=== PATIENT | male | born 1985 | race African-American/Black ===

== ENCOUNTER 2016-09-28 18:50 | Inpatient (IN) | payer SELFPAY ==
[~2016-09-28] VITALS: Ht 172.7 cm; Wt 100.7 kg
--- NOTE | 2016-09-28 21:12 | PHYS DOC ---
Past Medical History Past Medical History: Hypertension Additional Past Medical Histor: lumbar bulging disc Past Surgical History: No Surgical History Alcohol Use: Rarely Drug Use: Marijuana Adult General Chief Complaint Chief Complaint: OTHER COMPLAINTS HPI HPI Patient is a 31 year old male who presents with right-sided paresthesias. Patient reports since Tuesday he has had tingling and numbness in patches from his right face down through his neck, right arm, right chest, right abdomen/ flank, right leg. No weakness, no headache, no other neuro symptoms. He went to [facility] on Tuesday after his symptoms did not resolve in a short times pain. He reports he underwent evaluation for stroke including CT head, ultrasound of carotids, echocardiogram; he did not undergo MRI. He was discharged home on Tuesday. He presents in today for second opinion as his numbness has continued. No similar episodes before this. No other acute complaints. Review of Systems Review of Systems Constitutional: Denies fever or chills Eyes: Denies change in visual acuity or eye pain HENT: Denies nasal congestion or sore throat Respiratory: Denies cough or shortness of breath Cardiovascular: Denies chest pain GI: Denies abdominal pain, nausea, vomiting, bloody stools or diarrhea : Denies dysuria or hematuria Musculoskeletal: Denies back pain or joint pain Integument: Denies rash or skin lesions Neurologic: R side numbness. Denies headache, focal weakness Current Medications Current Medications Current Medications Medications (Trade) Dose Ordered Sig/Walker Start Time Stop Time Status Last Admin Dose Admin Lorazepam (Ativan) 1 mg 1X ONCE 09/28/16 22:30 09/28/16 22:31 DC 09/28/16 22:36 1 MG Nicotine (Nicoderm Cq 21mg) 1 patch PRN DAILY PRN 09/28/16 22:45 09/28/16 23:20 1 PATCH Allergies Allergies Allergies Coded Allergies Type Severity Reaction Last Updated Verified No Known Drug Allergies 09/28/16 No Physical Exam Physical Exam Constitutional: Well developed, well nourished, no acute distress, non-toxic appearance HENT: Normocephalic, atraumatic, bilateral external ears normal Eyes: PERRL, EOMI, conjunctiva normal, no discharge Neck: Normal range of motion, no stridor Cardiovascular: Heart rate normal, regular rhythm, no murmur Lungs & Thorax: Bilateral breath sounds clear to auscultation Abdomen: Bowel sounds normal, soft, non-distended, no TTP Skin: Warm, dry, no erythema, no rash Extremities: No obvious deformity, no edema Neurologic: Alert and oriented X 3, GCS 15, CN II-XII grossly intact, strength intact and symmetrical throughout, sensation to light touch intact throughout although patient reports areas on R side of body feels slightly different than on L, no dystaxia noted Current Patient Data Vital Signs Vital Signs Date Time Temp Pulse Resp B/P Pulse Ox O2 Delivery O2 Flow Rate FiO2 09/28/16 19:37 102 22 155/93 96 Room Air 09/28/16 19:19 98.3 98.3 Lab Values Laboratory Tests Test 09/28/16 22:15 White Blood Count 8.1x10^3/uL (4.0-11.0) Red Blood Count 5.21x10^6/uL (4.30-5.70) Hemoglobin 16.0g/dL (13.0-17.5) Hematocrit 46.0% (39.0-53.0) Mean Corpuscular Volume 88fL (79-100) Mean Corpuscular Hemoglobin 31pg (25-35) Mean Corpuscular Hemoglobin Concent 35g/dL (31-37) Red Cell Distribution Width 13.2% (11.5-14.5) Platelet Count 325x10^3/uL (140-400) Neutrophils (%) (Auto) 35% (31-73) Lymphocytes (%) (Auto) 52% (24-48) H Monocytes (%) (Auto) 9% (0-9) Eosinophils (%) (Auto) 5% (0-3) H Basophils (%) (Auto) 0% (0-3) Neutrophils # (Auto) 2.8x10^3uL (1.8-7.7) Lymphocytes # (Auto) 4.2x10^3/uL (1.0-4.8) Monocytes # (Auto) 0.7x10^3/uL (0.0-1.1) Eosinophils # (Auto) 0.4x10^3/uL (0.0-0.7) Basophils # (Auto) 0.0x10^3/uL (0.0-0.2) Prothrombin Time 12.1SEC (11.7-14.0) Prothrombin Time INR 1.0 (0.8-1.1) PTT 32SEC (24-38) Sodium Level 137mmol/L (136-145) Potassium Level 3.6mmol/L (3.5-5.1) Chloride Level 103mmol/L (98-107) Carbon Dioxide Level 27mmol/L (21-32) Anion Gap 7 (6-14) Blood Urea Nitrogen 10mg/dL (8-26) Creatinine 0.9mg/dL (0.7-1.3) Estimated GFR (Cockcroft-Gault) 119.1 BUN/Creatinine Ratio 11 (6-20) Glucose Level 97mg/dL (70-99) Calcium Level 9.0mg/dL (8.5-10.1) Total Bilirubin 0.2mg/dL (0.2-1.0) Aspartate Amino Transferase (AST) 16U/L (15-37) Alanine Aminotransferase (ALT) 27U/L (16-63) Alkaline Phosphatase 56U/L (46-116) Total Protein 8.2g/dL (6.4-8.2) Albumin 3.5g/dL (3.4-5.0) Albumin/Globulin Ratio 0.7 (1.0-1.7) L Laboratory Tests 09/28/16 22:15 Laboratory Tests 09/28/16 22:15 EKG EKG EKG (my read): sinus rhythm, rate 96, normal axis, intervals wnl, no acute ischemic changes Radiology/Procedures Radiology/Procedures CXR (my read): No acute abnormality Course & Med Decision Making Course & Med Decision Making Pertinent Labs and Imaging studies reviewed. (See chart for details) Patient is 31-year-old male who presents with right-sided numbness. Low suspicion for stroke given lack of other symptoms and nonfocal neuro exam, combined with age. I discussed the case with Dr. burns, who says patient should be admitted to hospital to undergo MRI. She also requests urine drug screen. I discussed this with patient, who has reluctantly agreed to be admitted and undergo the MRI. Labs, EKG, chest x-ray ordered. Discussed with Dr. Baker, will admit under her care for further evaluation and treatment. Dragon Disclaimer Dragon Disclaimer This electronic medical record was generated, in whole or in part, using a voice recognition dictation system. Departure Departure Impression: Primary Impression: Paresthesias Disposition: 09 ADMITTED INPATIENT Admitting Physician: Destiny Baker Condition: STABLE Referrals: NO PCP (PCP) KAREN CHAU MD Sep 28, 2016 21:13
[2016-09-28 22:30] LABS: BASO % 0 % (0-3); EOS % 5 % (0-3); LYMPH # 4.2 x10^3/uL (1.0-4.8); LYMPH % 52 % (24-48); MEAN CORPUSCULAR HEMOGLOBIN 31 pg (25-35); MEAN CORPUSCULAR HGB CONC 35 g/dL (31-37); MEAN CORPUSCULAR VOLUME 88 fL (79-100); MONO % 9 % (0-9); NEUT % 35 % (31-73); PLATELET COUNT 325 x10^3/uL (140-400); RED BLOOD COUNT 5.21 x10^6/uL (4.30-5.70); RED CELL DISTRIBUTION WIDTH 13.2 % (11.5-14.5); WHITE BLOOD COUNT 8.1 x10^3/uL (4.0-11.0)
[2016-09-28] MEDS ORDERED: LORAZEPAM 1 MG TABLET. PO ONE (22:30)
[2016-09-28 22:39] LABS: PROTHROMBIN TIME PATIENT 12.1 SEC (11.7-14.0)
[2016-09-28 22:40] LABS: CREATININE 0.9 mg/dL (0.7-1.3); GFR 119.1; POTASSIUM 3.6 mmol/L (3.5-5.1)
[2016-09-28] MEDS ORDERED: NICOTINE 21MG PATCH. TD PRN (22:45)
[2016-09-28 22:46] LABS: ALBUMIN 3.5 g/dL (3.4-5.0); ALBUMIN/GLOBULIN RATIO 0.7 (1.0-1.7); TOTAL BILIRUBIN 0.2 mg/dL (0.2-1.0); TOTAL PROTEIN 8.2 g/dL (6.4-8.2)
[2016-09-28] MEDS ORDERED: ACETAMINOPHEN 325 MG TABLET. PO PRN (23:15)
[2016-09-28] MEDS ORDERED: ONDANSETRON PF 4 MG/2 ML VIAL. IV PRN (23:15)
[2016-09-29 01:01] VITALS: BP 139/95
[2016-09-29] MEDS ORDERED: MORPHINE SULFATE 2 MG/ML DISP.SYRIN. IV PRN (02:30)
[2016-09-29 04:44] LABS: BASO # 0.1 x10^3/uL (0.0-0.2); BASO % 2 % (0-3); EOS % 5 % (0-3); HEMATOCRIT 42.4 % (39.0-53.0); HEMOGLOBIN 14.6 g/dL (13.0-17.5); LYMPH % 56 % (24-48); MEAN CORPUSCULAR HEMOGLOBIN 31 pg (25-35); MEAN CORPUSCULAR HGB CONC 34 g/dL (31-37); MEAN CORPUSCULAR VOLUME 89 fL (79-100); MONO % 9 % (0-9); NEUT % 29 % (31-73); PLATELET COUNT 299 x10^3/uL (140-400); RED BLOOD COUNT 4.76 x10^6/uL (4.30-5.70); WHITE BLOOD COUNT 7.1 x10^3/uL (4.0-11.0)
[2016-09-29 05:00] LABS: CALCIUM 8.9 mg/dL (8.5-10.1); CREATININE 0.9 mg/dL (0.7-1.3); GFR 119.1; POTASSIUM 3.6 mmol/L (3.5-5.1)
--- NOTE | 2016-09-29 06:22 | EKG ---
[facility] [address] [place] [address] Test Date: 2016-09-28 Test Time: 22:24:11 Pat Name: GINNY SORTO Department: Room: Gender: M Larry Operator: : 1985 Requested By: KAREN CHAU Order Number: [id number] Reading MD: Measurements Intervals [place] Rate: 96 P: 59 UT: 144 QRS: 24 QRSD: 88 T: 48 QT: 336 QTc: 425 Interpretive Statements SINUS RHYTHM LEFT ATRIAL ABNORMALITY RI6.01 Unconfirmed report No previous ECG available for comparison
[2016-09-29 07:02] LABS: % EOS 6 % (0-5)
[2016-09-29 07:03] LABS: PLT ESTIMATE ADEQUATE (ADEQUATE)
[2016-09-29 07:12] VITALS: BP 144/93
[2016-09-29] MEDS ORDERED: AMLO10TA2 PO (07:32)
--- NOTE | 2016-09-29 07:58 | RAD ---
Portable chest, 09/28/2016: History: Right-sided numbness The heart size and pulmonary vascularity are normal. The lungs are clear. There is no evidence of pleural fluid. IMPRESSION: No acute cardiopulmonary abnormality is detected.
[2016-09-29 10:36] VITALS: BP 151/106
[2016-09-29 11:19] VITALS: BP 151/106
[2016-09-29] MEDS ORDERED: AMLODIPINE BESYLATE 10 MG TABLET PO SCH (11:30)
[2016-09-29] MEDS ORDERED: GADOBUTROL 10 MMOL/10 ML VIAL IV ONE (14:45)
--- NOTE | 2016-09-29 15:10 | RAD ---
PROCEDURE Brain MRI with and without contrast. HISTORY Right facial and upper extremity weakness. TECHNIQUE Multiplanar and multi sequence magnetic resonance imaging of the brain was performed prior to and following the administration of 10 cc Gadavist intravenous contrast. COMPARISON None. FINDINGS There is restricted diffusion within the left thalamus. There is corresponding T2/FLAIR hyperintensity and faint enhancement within this region. This suggests a late subacute rather than an acute infarct. There is no susceptibility effect to suggest hemorrhage. There is no mass effect or midline shift. There is no hydrocephalus. There are several scattered focal areas of T2/FLAIR hyperintensity within the cerebral white matter, a nonspecific finding. The orbits are unremarkable. The paranasal sinuses are unremarkable. The mastoid air cells are clear. There are normal flow voids within the cerebral vessels. IMPRESSION 1. Suspected late subacute infarct within the left thalamus, demonstrating restricted diffusion and faint enhancement. 2. Scattered focal areas of T2/FLAIR hyperintensity within the cerebral white matter. Given the patient age, the differential includes chronic small vessel disease as well as demyelinating disease. Findings were discussed with the Dr. Echevarria at 1500 hours on 02/26/2017. Electronically signed by: Sandy Elizabeth (Sep 29, 2016 15:08:27)
--- NOTE | 2016-09-29 15:43 | DISCH ---
DISCHARGE INSTRUCTIONS Condition on Discharge Condition on Discharge: Stable Activity After Discharge Activity Instructions for Disc: No restrictions Diet after Discharge Diet after Discharge: Cardiac Contacting the DRMaryse after DC Call your doctor for: Concerns you may have Follow-Up Follow up with: New PCP BOBBY! ANITA TERRELL MD Sep 29, 2016 15:43
[2016-09-29] MEDS ORDERED: ASPI325T11 PO (15:44)
[2016-09-29] MEDS ORDERED: LISI-334 PO (15:56)
[2016-09-29] MEDS ORDERED: ASPIRIN 325 MG TABLET PO SCH (17:00)
--- NOTE | 2016-09-29 18:54 | SSS ---
ADMIT DATE: 09/29/2016 CHIEF COMPLAINT: Right-sided paresthesias. HISTORY OF PRESENT ILLNESS: The patient is a 31-year-old gentleman with known history of hypertension who presented to the Emergency Room with worsening right-sided paresthesias. He relates that he actually had symptoms starting late last week and had presented to [facility] with complaints of numbness in his hands that would not resolve. He describes this as a feeling of having his hands falling asleep with numbness and tingling. The patient apparently was worked up in [place] for CVA, except MRI was omitted as it would have meant for him to stay in the hospital for another day. He went home and within a day or so had worsening symptoms with numbness and tingling spreading over his entire arm, his right face and his right torso and leg as well. He denies any weakness, denies any vision problems or other symptoms, never had symptoms like this before. FAMILY HISTORY: Negative. PAST MEDICAL HISTORY: Hypertension. SOCIAL HISTORY: Lives with his and 8 children. 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 Minimal alcohol and occasional pot use. Of note, he had positive drug screen for cocaine as well as oxycodone at [place], states he was smoking pot with a friend potentially laced with cocaine. ALLERGIES: No known drug allergies. MEDICATIONS: Norvasc at home. REVIEW OF SYSTEMS: Numbness and tingling as per HPI. Rest of organ system review was completely negative. PHYSICAL EXAMINATION: VITAL SIGNS: Show a blood pressure of 151/106, respiratory rate at 18. He is afebrile. GENERAL: This is an obese 31-year-old gentleman, alert and oriented, in no acute distress. HEENT: Shows no scleral icterus. Oral mucosa is pink and moist. NECK: Supple. LUNGS: Clear to auscultation bilaterally. HEART: Regular rate and rhythm. ABDOMEN: Has positive bowel sounds. Soft, nontender. EXTREMITIES: Show no edema. NEUROLOGIC: He is alert and oriented x 3. Muscle strength is 5/5 throughout. Sensorium appears intact. LABORATORY DATA: CBC here shows a WBC of 7.1, hemoglobin 14.6, platelets of 299. Chemistries with a BUN and creatinine of 10 and 0.9. Electrolytes within normal, LFTs within normal. TSH at 1.6. Lipid panel back ordered, results pending. IMAGING: MRI of the brain obtained this afternoon shows a suspected late subacute infarct within the left thalamus demonstrating restricted diffusion and faint enhancement. In addition, there are scattered focal areas of T2 flair hyperintensity within the cerebral white matter, differential including chronic small vessel disease or a demyelinating disease. ASSESSMENT AND PLAN: The patient is a 31-year-old gentleman with unusual presentation of sensorial deficits. This unfortunately has been shown to be related to a subacute stroke, which more than likely occurred prior to his presentation at [facility] last week. Unfortunately, MRI there had not been obtained. However, further workup to rule out risk factors have been undertaken. This included an echocardiogram, which did not show a foramen, but did show decreased ejection fraction at 40%-45%. Carotid ultrasound bilaterally was negative. I discussed with him risk factors for stroke. This may very well be related to his cocaine use even if unintentional. I advised him to abstain from illicit drug use. However, he does have multiple other risk factors as well including a significant smoking history as well as hypertension, which is poorly controlled. I strongly advised smoking cessation. His hypertension was addressed by increasing his blood pressure medication. He is taking Norvasc at home. Lisinopril was added to his regimen. He also will take an aspirin 325 mg daily for the next month, can decrease to 81 later on. He was strongly urged to follow up with a primary care physician for monitoring of other risk factors. Lipid profile is pending at this time. He may need a statin as well. DISCHARGE DATE: 09/29/2016. DISCHARGE DISPOSITION: To home. DISCHARGE CONDITION: Stable. DISCHARGE DIAGNOSES: Thalamic infarct. DISCHARGE MEDICATIONS: Please refer to MAR. DISCHARGE INSTRUCTIONS: Follow up with PCP BOBBY. ANITA TERRELL MD DR: JAMEEL/nts JOB#: [id number] / [id number] HARPREET
--- NOTE | 2016-09-29 19:16 | PDOC2 ---
NEUROLOGY CONSULT Date of Admission Date of Admission DATE: 09/29/16 TIME: 19:06 Reason for Consult Reason for Consult: IMPRESSION: Subacute left thalamus infarct. Right side numbness and paresthesia for about 4 days. HTN Smoking RECOMMENDATIONS/PLAN: ASA 325 mg daily. Statin HS. Brain MRI, performed. Lab: see orders. Carotid A US + Doppler and Echo were performed in other hospital a few days ago. HISTORY OF THE PRESENT ILLNESS: 31-y-old male patient with Hx of HTN and smoking developed symptoms of right side numbness and tingling for several days. He went to other hospital and had CVA evaluation including Carotid A US and Echo, but he left there without brain MRI. His symptoms persistent, he then came to the ER of [facility]. His brain MRI revealed above infarct. PAST MEDICAL HISTORY: Please see above. PAST SURGERY HISTOR: No major surgery recently. ALLERGY: Unknown MEDICATIONS: Refer to MAR FAMILY HISTORY: Non contributory. SOCIAL HISTORY: Denies drinking, and illicit drug use. He smokes 1 pack of cigarettes a day for 13 years. REVIEW OF SYSTEMS: Constitutional: No malnutrition, weight loss, cachexia. Head: No traumatic brain or head injury. Skin: No edema, or rash. Ear: No infection, tinnitus. Eyes: No vision loss or color blindness. Nose: No bleeding or purulent discharges. Hearing: No hearing decrease. Neck: No injury. Cardiac: HTN Pulmonary: No pneumonia. GI: No GI ulcer, GI bleeding. Urinary/genital: No dysuria, hematuria, incontinence, urinary retention. Endocrinologic: No cousin face, craniofacial dysmorphism, polydactyly, goiter Skeletomuscular: No muscular atrophy, deformity. Neurological: see HP. Psychiatric: Denies drug use/abuse. Otherwise, not [id number] review of systems. PHYSICAL EXAMINATION: General appearance is in subacute distress. HEENT: Normocephalic and nontraumatic. Eyes, nose, ears, and throat are unremarkable. Neck is supple. No lymphadenopathy. No bruits are heard over the carotid artery. No crepitus. Cardiovascular: S1, S2, regular rate and rhythm. Pulmonary: Clear to auscultation bilaterally. Abdomen: Bowel sounds are positive. Abdomen is soft, nontender, and nondistended. Extremities: No rash, lesions, or edema. No restriction of range of motion NEUROLOGICAL EXAMINATION: Alert Oriented to time, place and person. PERRL. EOMI. CN: no focal findings. Muscle tone: within normal. Muscle strength: 5 DTR: 2 Plantar reflex: Flexor response bilaterally Gait: not examined in bed. At baseline normal. Sensory exam: no abnormal findings. No cerebellar signs elicited. F-T-N test accurate. Current Medications Current Medications Current Medications Lorazepam (Ativan) 1 mg 1X ONCE PO Last administered on 09/28/16 22:36; Start 09/28/16 at 22:30; Stop 09/28/16 at 22:31; Status DC Nicotine (Nicoderm Cq 21mg) 1 patch PRN DAILY PRN TD SMOKING CESSATION Last administered on 09/28/16 23:20; Start 09/28/16 at 22:45 Ondansetron HCl (Zofran) 4 mg PRN Q8HRS PRN IV NAUSEA/VOMITING; Start 09/28/16 at 23:15; Stop 09/29/16 at 23:14 Acetaminophen (Tylenol) 650 mg PRN Q4HRS PRN PO FEVER Last administered on 01:41; Start 09/28/16 at 23:15; Stop 09/29/16 at 23:14 Morphine Sulfate 2 mg PRN Q2HR PRN IV PAIN Last administered on 09/29/16 07:56 ; Start 09/29/16 at 02:30; Stop 09/30/16 at 02:29 Amlodipine Besylate (Norvasc) 10 mg DAILY08 PO Last administered on 09/29/16 11 :19; Start 09/29/16 at 11:30 Gadobutrol (Gadavist) 10 mmol 1X ONCE IV Last administered on 09/29/16 14:58; Start 09/29/16 at 14:45; Stop 09/29/16 at 14:46; Status DC Aspirin (Blanca Aspirin) 325 mg DAILYWBKFT PO ; Start 09/29/16 at 17:00 Active Scripts Active Lisinopril 20 Mg Tablet 1 Tab PO DAILY Aspirin Ec (Aspirin) 325 Mg Tablet. 1 Tab PO DAILY Reported Amlodipine Besylate 10 Mg Tablet 10 Mg PO DAILY08 Allergies Allergies: Coded Allergies: No Known Drug Allergies (Unverified , 09/28/16) Vitals VITALS Vital Signs Date Time Temp Pulse Resp B/P Pulse Ox O2 Delivery O2 Flow Rate FiO2 09/29/16 11:19 106 151/106 09/29/16 10:36 98.1 18 97 Room Air 98.1 Labs Labs Laboratory Tests Test 09/28/16 22:15 09/29/16 04:02 White Blood Count 8.1x10^3/uL (4.0-11.0) 7.1x10^3/uL (4.0-11.0) Red Blood Count 5.21x10^6/uL (4.30-5.70) 4.76x10^6/uL (4.30-5.70) Hemoglobin 16.0g/dL (13.0-17.5) 14.6g/dL (13.0-17.5) Hematocrit 46.0% (39.0-53.0) 42.4% (39.0-53.0) Mean Corpuscular Volume 88fL (79-100) 89fL (79-100) Mean Corpuscular Hemoglobin 31pg (25-35) 31pg (25-35) Mean Corpuscular Hemoglobin Concent 35g/dL (31-37) 34g/dL (31-37) Red Cell Distribution Width 13.2% (11.5-14.5) 13.0% (11.5-14.5) Platelet Count 325x10^3/uL (140-400) 299x10^3/uL (140-400) Neutrophils (%) (Auto) 35% (31-73) 29% (31-73) Lymphocytes (%) (Auto) 52% (24-48) 56% (24-48) Monocytes (%) (Auto) 9% (0-9) 9% (0-9) Eosinophils (%) (Auto) 5% (0-3) 5% (0-3) Basophils (%) (Auto) 0% (0-3) 2% (0-3) Neutrophils # (Auto) 2.8x10^3uL (1.8-7.7) 2.0x10^3uL (1.8-7.7) Lymphocytes # (Auto) 4.2x10^3/uL (1.0-4.8) 4.0x10^3/uL (1.0-4.8) Monocytes # (Auto) 0.7x10^3/uL (0.0-1.1) 0.6x10^3/uL (0.0-1.1) Eosinophils # (Auto) 0.4x10^3/uL (0.0-0.7) 0.3x10^3/uL (0.0-0.7) Basophils # (Auto) 0.0x10^3/uL (0.0-0.2) 0.1x10^3/uL (0.0-0.2) Prothrombin Time 12.1SEC (11.7-14.0) Prothromb Time International Ratio 1.0 (0.8-1.1) Activated Partial Thromboplast Time 32SEC (24-38) Sodium Level 137mmol/L (136-145) 140mmol/L (136-145) Potassium Level 3.6mmol/L (3.5-5.1) 3.6mmol/L (3.5-5.1) Chloride Level 103mmol/L (98-107) 105mmol/L (98-107) Carbon Dioxide Level 27mmol/L (21-32) 26mmol/L (21-32) Anion Gap 7 (6-14) 9 (6-14) Blood Urea Nitrogen 10mg/dL (8-26) 11mg/dL (8-26) Creatinine 0.9mg/dL (0.7-1.3) 0.9mg/dL (0.7-1.3) Estimated GFR (Cockcroft-Gault) 119.1 119.1 BUN/Creatinine Ratio 11 (6-20) Glucose Level 97mg/dL (70-99) 111mg/dL (70-99) Calcium Level 9.0mg/dL (8.5-10.1) 8.9mg/dL (8.5-10.1) Total Bilirubin 0.2mg/dL (0.2-1.0) Aspartate Amino Transf (AST/SGOT) 16U/L (15-37) Alanine Aminotransferase (ALT/SGPT) 27U/L (16-63) Alkaline Phosphatase 56U/L (46-116) Total Protein 8.2g/dL (6.4-8.2) Albumin 3.5g/dL (3.4-5.0) Albumin/Globulin Ratio 0.7 (1.0-1.7) Segmented Neutrophils % 28% (35-66) Band Neutrophils % 1% (0-9) Lymphocytes % 58% (24-48) Atypical Lymphocytes % (Manual) 4% (0-0) Monocytes % 3% (0-10) Eosinophils % 6% (0-5) Platelet Estimate Adequate (ADEQUATE) Thyroid Stimulating Hormone (TSH) 1.635uIU/mL (0.358-3.74) Laboratory Tests Test 09/28/16 22:15 09/29/16 04:02 White Blood Count 8.1x10^3/uL (4.0-11.0) 7.1x10^3/uL (4.0-11.0) Red Blood Count 5.21x10^6/uL (4.30-5.70) 4.76x10^6/uL (4.30-5.70) Hemoglobin 16.0g/dL (13.0-17.5) 14.6g/dL (13.0-17.5) Hematocrit 46.0% (39.0-53.0) 42.4% (39.0-53.0) Mean Corpuscular Volume 88fL (79-100) 89fL (79-100) Mean Corpuscular Hemoglobin 31pg (25-35) 31pg (25-35) Mean Corpuscular Hemoglobin Concent 35g/dL (31-37) 34g/dL (31-37) Red Cell Distribution Width 13.2% (11.5-14.5) 13.0% (11.5-14.5) Platelet Count 325x10^3/uL (140-400) 299x10^3/uL (140-400) Neutrophils (%) (Auto) 35% (31-73) 29% (31-73) Lymphocytes (%) (Auto) 52% (24-48) 56% (24-48) Monocytes (%) (Auto) 9% (0-9) 9% (0-9) Eosinophils (%) (Auto) 5% (0-3) 5% (0-3) Basophils (%) (Auto) 0% (0-3) 2% (0-3) Neutrophils # (Auto) 2.8x10^3uL (1.8-7.7) 2.0x10^3uL (1.8-7.7) Lymphocytes # (Auto) 4.2x10^3/uL (1.0-4.8) 4.0x10^3/uL (1.0-4.8) Monocytes # (Auto) 0.7x10^3/uL (0.0-1.1) 0.6x10^3/uL (0.0-1.1) Eosinophils # (Auto) 0.4x10^3/uL (0.0-0.7) 0.3x10^3/uL (0.0-0.7) Basophils # (Auto) 0.0x10^3/uL (0.0-0.2) 0.1x10^3/uL (0.0-0.2) Prothrombin Time 12.1SEC (11.7-14.0) Prothromb Time International Ratio 1.0 (0.8-1.1) Activated Partial Thromboplast Time 32SEC (24-38) Sodium Level 137mmol/L (136-145) 140mmol/L (136-145) Potassium Level 3.6mmol/L (3.5-5.1) 3.6mmol/L (3.5-5.1) Chloride Level 103mmol/L (98-107) 105mmol/L (98-107) Carbon Dioxide Level 27mmol/L (21-32) 26mmol/L (21-32) Anion Gap 7 (6-14) 9 (6-14) Blood Urea Nitrogen 10mg/dL (8-26) 11mg/dL (8-26) Creatinine 0.9mg/dL (0.7-1.3) 0.9mg/dL (0.7-1.3) Estimated GFR (Cockcroft-Gault) 119.1 119.1 BUN/Creatinine Ratio 11 (6-20) Glucose Level 97mg/dL (70-99) 111mg/dL (70-99) Calcium Level 9.0mg/dL (8.5-10.1) 8.9mg/dL (8.5-10.1) Total Bilirubin 0.2mg/dL (0.2-1.0) Aspartate Amino Transf (AST/SGOT) 16U/L (15-37) Alanine Aminotransferase (ALT/SGPT) 27U/L (16-63) Alkaline Phosphatase 56U/L (46-116) Total Protein 8.2g/dL (6.4-8.2) Albumin 3.5g/dL (3.4-5.0) Albumin/Globulin Ratio 0.7 (1.0-1.7) Segmented Neutrophils % 28% (35-66) Band Neutrophils % 1% (0-9) Lymphocytes % 58% (24-48) Atypical Lymphocytes % (Manual) 4% (0-0) Monocytes % 3% (0-10) Eosinophils % 6% (0-5) Platelet Estimate Adequate (ADEQUATE) Thyroid Stimulating Hormone (TSH) 1.635uIU/mL (0.358-3.74) ELOISE ANDRE MD Sep 29, 2016 19:16
== END 2016-09-29 18:30 | disposition home or self-care (01) | DRG 66 ==
LOC: ER 18:50 → 6 SOUTH 23:07
PROVIDERS: ADMIT Internal Medicine; ATTEND Internal Medicine
DX: I63.9 Cerebral infarction, unspecified (principal); F14.90 Cocaine use, unspecified, uncomplicated; I10 Essential (primary) hypertension; Z79.82 Long term (current) use of aspirin; F17.210 Nicotine dependence, cigarettes, uncomplicated; Z79.899 Other long term (current) drug therapy; Z98.890 Other specified postprocedural states; R20.8 Other disturbances of skin sensation
CPT/HCPCS: 36415; 70553; 71010; 80048; 80053; 82607; 84443; 85007; 85027; 85610; 85730; 93005; 99406; A9585; J2270; 99285-25

== ENCOUNTER 2018-06-14 18:27 | Inpatient (IN) | payer SELFPAY ==
[~2018-06-14] VITALS: Ht 172.7 cm; Wt 88.9 kg
[~2018-06-14 18:27] MED LIST: AMLO10TA6 PO; ASPI325T11 PO; LISI-334 PO
[2018-06-14] MEDS ORDERED: amLODIPine BESYLATE 5 MG TABLET PO ONE (19:45)
[2018-06-14] MEDS ORDERED: HYDROcodone/APAP 5/325MG 1 TAB TABLET PO ONE (19:45)
[2018-06-14] MEDS ORDERED: IPRATRPIUM/ALBUTEROL 0.5/2.5MG 3 ML NEBU. NEB ONE (20:00)
--- NOTE | 2018-06-14 20:30 | RAD ---
PA and lateral chest radiograph. History: Productive cough with red sputum for one day.. Comparison: September 28, 2016. Findings: Cardiac silhouette is mildly enlarged. No pneumothorax or pleural effusion is seen. Levi B-lines are present. Infiltrate involves portions of the right lower lobe. Impression: 1. Cardiac silhouette is enlarged and Levi B lines are seen. Findings would be compatible with congestive heart failure/interstitial edema. 2. Infiltrate involves the right lower lobe. This could represent pneumonia versus asymmetric pulmonary edema. Electronically signed by: Brian Persaud MD (06/14/2018 8:26 PM) [facility]
[2018-06-14 20:58] LABS: BASO # 0.1 x10^3/uL (0.0-0.2); BASO % 1 % (0-3); EOS # 0.1 x10^3/uL (0.0-0.7); EOS % 1 % (0-3); HEMATOCRIT 41.2 % (39.0-53.0); HEMOGLOBIN 14.4 g/dL (13.0-17.5); LYMPH # 3.2 x10^3/uL (1.0-4.8); LYMPH % 27 % (24-48); MEAN CORPUSCULAR HEMOGLOBIN 30 pg (25-35); MEAN CORPUSCULAR HGB CONC 35 g/dL (31-37); MEAN CORPUSCULAR VOLUME 86 fL (79-100); MONO % 9 % (0-9); NEUT # 7.5 x10^3uL (1.8-7.7); NEUT % 63 % (31-73); PLATELET COUNT 298 x10^3/uL (140-400); RED BLOOD COUNT 4.78 x10^6/uL (4.30-5.70); RED CELL DISTRIBUTION WIDTH 13.6 % (11.5-14.5)
[2018-06-14 21:11] LABS: CALCIUM 9.1 mg/dL (8.5-10.1); GFR 104.8; POTASSIUM 3.1 mmol/L (3.5-5.1)
[2018-06-14 21:16] LABS: ALBUMIN 3.2 g/dL (3.4-5.0); ALBUMIN/GLOBULIN RATIO 0.7 (1.0-1.7); TOTAL BILIRUBIN 0.6 mg/dL (0.2-1.0); TOTAL PROTEIN 7.7 g/dL (6.4-8.2)
[2018-06-14] MEDS ORDERED: CONTRAST GIVEN. MC PRN (21:45)
[2018-06-14] MEDS ORDERED: IOHEXOL 300 MG/ML 100ML VIAL. IV ONE (21:45)
[2018-06-14] MEDS ORDERED: AZITHRMYCN 500MG IVPB FOR OMNI 250 ML IV ONE (22:00)
[2018-06-14] MEDS ORDERED: BACLOFEN 10 MG TABLET. PO ONE (22:15)
[2018-06-14 22:40] LABS: BARBITURATES NEG (NEG); BENZODIAZEPINES NEG (NEG); CANNABINOIDS POS (NEG); COCAINE NEG (NEG); METHADONE NEG (NEG); OPIATES POS (NEG); PHENCYCLIDINE NEG (NEG)
--- NOTE | 2018-06-14 22:40 | PHYS DOC ---
Past Medical History Past Medical History: CVA, Hypertension Additional Past Medical Histor: lumbar bulging disc Past Surgical History: No Surgical History Additional Information: 1 / pk/day Alcohol Use: Rarely Drug Use: Marijuana Adult General Chief Complaint Chief Complaint: SHORTNESS OF BREATH HPI HPI Patient is a 32 year old M who presents with redness of breath for the last 4- 5 days. 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 He reports he was out of town last week and thought maybe he caught a cold. He denies any fever or chills. He denies any chest pain. He reports he has been out of his Norvasc and hydrocodone for the last 4 days. He reports he has chronic back pain that has been worsening since he is out of his medications. Review of Systems Review of Systems Constitutional: Denies fever or chills [] HENT: Denies nasal congestion or sore throat [] Respiratory: Reports productive cough and shortness of breath Cardiovascular: Denies chest pain or palpitations GI: Denies abdominal pain, nausea, vomiting Musculoskeletal: Reports lower back pain Integument: Denies rash or skin lesions [] Neurologic: Denies headache, focal weakness or sensory changes [] All other systems were reviewed and found to be within normal limits, except as documented in this note. Current Medications Current Medications Current Medications Medications (Trade) Dose Ordered Sig/Walker Start Time Stop Time Status Last Admin Dose Admin Acetaminophen/ Hydrocodone Bitart (Lortab 5/325) 1 tab 1X ONCE 06/14/18 19:45 06/14/18 19:49 DC 06/14/18 19:52 1 TAB Albuterol/ Ipratropium (Duoneb) 3 ml 1X ONCE 06/14/18 20:00 06/14/18 20:01 DC 06/14/18 19:59 3 ML Amlodipine Besylate (Norvasc) 5 mg 1X ONCE 06/14/18 19:45 06/14/18 19:49 DC 06/14/18 19:53 5 MG Azithromycin 250 ml @ 250 mls/hr 1X ONCE 06/14/18 22:00 06/14/18 22:59 Baclofen (Lioresal) 20 mg 1X ONCE 06/14/18 22:15 06/14/18 22:16 DC 06/14/18 22:17 20 MG Ceftriaxone Sodium 50 ml @ 100 mls/hr 1X ONCE 06/14/18 22:00 06/14/18 22:29 DC 06/14/18 22:17 100 MLS/HR Info (CONTRAST GIVEN -- Rx MONITORING) 1 each PRN DAILY PRN 06/14/18 21:45 06/16/18 21:44 Iohexol (Omnipaque 300 Mg/ml) 75 ml 1X ONCE 06/14/18 21:45 06/14/18 21:46 DC 06/14/18 21:43 75 ML Allergies Allergies Allergies Coded Allergies Type Severity Reaction Last Updated Verified No Known Drug Allergies 09/28/16 No Physical Exam Physical Exam Constitutional: Well developed, well nourished, no acute distress, non-toxic appearance. [] HENT: Normocephalic, atraumatic Eyes: PERRLA, EOMI, conjunctiva normal, no discharge. [] Neck: Normal range of motion, no tenderness, supple, no stridor. [] Cardiovascular: Tachycardia, regular rhythm Lungs & Thorax: Bilateral breath sounds clear to auscultation [] Abdomen: Bowel sounds normal, soft, no tenderness Skin: Warm, dry, no erythema, no rash. [] Back: Lower back tenderness bilaterally Extremities: No tenderness, ROM intact, no edema. [] Neurologic: Alert and oriented X 3, normal motor function, normal sensory function, no focal deficits noted. [] Psychologic: Affect normal, judgement normal, mood normal. [] Current Patient Data Vital Signs Vital Signs Date Time Temp Pulse Resp B/P (MAP) Pulse Ox O2 Delivery O2 Flow Rate FiO2 06/14/18 20:01 95 Room Air 06/14/18 19:53 125 209/143 06/14/18 19:10 98.5 22 98.5 Lab Values Laboratory Tests Test 06/14/18 20:45 06/14/18 22:00 White Blood Count 12.0 x10^3/uL (4.0-11.0) H Red Blood Count 4.78 x10^6/uL (4.30-5.70) Hemoglobin 14.4 g/dL (13.0-17.5) Hematocrit 41.2 % (39.0-53.0) Mean Corpuscular Volume 86 fL (79-100) Mean Corpuscular Hemoglobin 30 pg (25-35) Mean Corpuscular Hemoglobin Concent 35 g/dL (31-37) Red Cell Distribution Width 13.6 % (11.5-14.5) Platelet Count 298 x10^3/uL (140-400) Neutrophils (%) (Auto) 63 % (31-73) Lymphocytes (%) (Auto) 27 % (24-48) Monocytes (%) (Auto) 9 % (0-9) Eosinophils (%) (Auto) 1 % (0-3) Basophils (%) (Auto) 1 % (0-3) Neutrophils # (Auto) 7.5 x10^3uL (1.8-7.7) Lymphocytes # (Auto) 3.2 x10^3/uL (1.0-4.8) Monocytes # (Auto) 1.0 x10^3/uL (0.0-1.1) Eosinophils # (Auto) 0.1 x10^3/uL (0.0-0.7) Basophils # (Auto) 0.1 x10^3/uL (0.0-0.2) D-Dimer (Divina) 2.62 ug/mlFEU (0.00-0.50) H Sodium Level 141 mmol/L (136-145) Potassium Level 3.1 mmol/L (3.5-5.1) L Chloride Level 104 mmol/L (98-107) Carbon Dioxide Level 27 mmol/L (21-32) Anion Gap 10 (6-14) Blood Urea Nitrogen 10 mg/dL (8-26) Creatinine 1.0 mg/dL (0.7-1.3) Estimated GFR (Cockcroft-Gault) 104.8 BUN/Creatinine Ratio 10 (6-20) Glucose Level 94 mg/dL (70-99) Calcium Level 9.1 mg/dL (8.5-10.1) Total Bilirubin 0.6 mg/dL (0.2-1.0) Aspartate Amino Transferase (AST) 16 U/L (15-37) Alanine Aminotransferase (ALT) 22 U/L (16-63) Alkaline Phosphatase 68 U/L (46-116) Troponin I Quantitative 0.067 ng/mL (0.000-0.055) TD-Bbw-C-Type Natriuretic Peptide 2104 pg/mL (0-124) H Total Protein 7.7 g/dL (6.4-8.2) Albumin 3.2 g/dL (3.4-5.0) L Albumin/Globulin Ratio 0.7 (1.0-1.7) L Procalcitonin < 0.10 ng/mL (0.00-0.10) Urine Opiates Screen Pos (NEG) Urine Methadone Screen Neg (NEG) Urine Barbiturates Neg (NEG) Urine Phencyclidine Screen Neg (NEG) Urine Amphetamine/Methamphetamine Pos (NEG) Urine Benzodiazepines Screen Neg (NEG) Urine Cocaine Screen Neg (NEG) Urine Cannabinoids Screen Pos (NEG) Urine Ethyl Alcohol Neg (NEG) Laboratory Tests 06/14/18 20:45 Laboratory Tests 06/14/18 20:45 EKG EKG Sinus tachycardia, no STEMI[] Radiology/Procedures Radiology/Procedures PATIENT: GINNY SORTO ACCOUNT: [id number] : 1985 LOCATION: ER AGE: 32 SEX: M EXAM STATUS: REG ER ORD. PHYSICIAN: DANICA ORTIZ NURSING FACULTY REASON: dyspnea, elevated ddimer PROCEDURE: CT ANGIOGRAPHY CHEST CT pulmonary angiogram with intravenous contrast History: Dyspnea. Elevated d-dimer Comparison: None. Technique: CT angiogram of the chest with attention to the pulmonary arteries was performed after the administration of intravenous contrast, 75 mL Omnipaque-300. Axial 2-D reconstructions were obtained. Coronal 3-D MIPS were obtained of the chest. Exposure: One or more of the following individualized dose reduction techniques were utilized for this examination: 1. Automated exposure control 2. Adjustment of the mA and/or kV according to patient size 3. Use of iterative reconstruction technique Findings: Pulmonary arteries are adequately opacified. There is motion artifact. There is no evidence of proximal segmental or larger pulmonary embolism. Trachea and mainstem bronchi appear patent. Visualized thyroid appears symmetric. No pneumothorax or pleural effusion is seen. No mediastinal lymphadenopathy is seen. Thoracic aorta has normal caliber. Cardiac chambers are generally enlarged. There is preferential enhancement of the pulmonary arteries in right side of the heart. There is poor opacification of left side of the heart. Septal thickening is seen involving both lungs. Constellation of findings are compatible with congestive heart failure. Both lungs demonstrate nodular areas of groundglass opacity, which could represent asymmetric pulmonary edema versus infectious or inflammatory process. This affects the right lung to a greater degree. Fatty liver disease is seen. Impression: 1. No evidence of proximal segmental or larger pulmonary embolism. 2. Congestive heart failure. 3. Both lungs demonstrate nodular groundglass opacity, right worse than left. These areas could represent asymmetric pulmonary edema versus infectious or inflammatory foci. Electronically signed by: Brian Jordan MD (06/14/2018 10:35 PM) [facility] DICTATED and SIGNED BY: BRIAN JORDAN MD DATE: 06/14/182225 PATIENT: GINNY SORTO JACCOUNT: [id number]#: [id number] : 1985 LOCATION: ER AGE: 32 SEX: M EXAM STATUS: REG ER ORD. PHYSICIAN: DANICA ORTIZ APRN REASON: dyspnea PROCEDURE: CHEST PA & LATERAL PA and lateral chest radiograph. History: Productive cough with red sputum for one day.. Comparison: September 28, 2016. Findings: Cardiac silhouette is mildly enlarged. No pneumothorax or pleural effusion is seen. Levi B-lines are present. Infiltrate involves portions of the right lower lobe. Impression: 1. Cardiac silhouette is enlarged and Levi B lines are seen. Findings would be compatible with congestive heart failure/interstitial edema. 2. Infiltrate involves the right lower lobe. This could represent pneumonia versus asymmetric pulmonary edema. Electronically signed by: Brian Jordan MD (06/14/2018 8:26 PM) [facility] DICTATED and SIGNED BY: BRIAN JORDAN MD DATE: 06/14/182023 [] Course & Med Decision Making Course & Med Decision Making Pertinent Labs and Imaging studies reviewed. (See chart for details) Patient did begin having chest pain during his evaluation. EKG was obtained and a troponin and BNP were added to his lab work. d/w Dr. Bernal, accepts admission. Plan: admit Dragon Disclaimer Dragon Disclaimer This electronic medical record was generated, in whole or in part, using a voice recognition dictation system. Departure Departure Referrals: NO PCP (PCP) DANICA ORTIZ APRN Jun 14, 2018 22:40
[2018-06-14 22:42] LABS: AMPHETAMINE/METHAMPHETAMINE POS (NEG)
[2018-06-14] MEDS ORDERED: ONDANSETRON PF 4 MG/2 ML VIAL. IV PRN (23:00)
[2018-06-14] MEDS ORDERED: FUROSEMIDE 40 MG/4 ML VIAL. IVP ONE (23:00)
[2018-06-14] MEDS ORDERED: MORPHINE SULFATE 4 MG/ML VIAL. IV PRN (23:00)
[2018-06-15] VITALS (7 sets, daily range): BP systolic 139–171; BP diastolic 86–124
[2018-06-15] MEDS: fentaNYL PF VIAL 100 MCG/2 ML VIAL IV PRN ×2 (01:22→21:32)
[2018-06-15] MEDS ORDERED: HYDR-2766 PO (01:52)
--- NOTE | 2018-06-15 02:18 | EKG ---
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
[2018-06-15 04:47] LABS: BASO # 0.1 x10^3/uL (0.0-0.2); BASO % 1 % (0-3); EOS # 0.1 x10^3/uL (0.0-0.7); EOS % 1 % (0-3); HEMATOCRIT 41.8 % (39.0-53.0); HEMOGLOBIN 14.7 g/dL (13.0-17.5); LYMPH % 20 % (24-48); MEAN CORPUSCULAR HEMOGLOBIN 30 pg (25-35); MEAN CORPUSCULAR HGB CONC 35 g/dL (31-37); MEAN CORPUSCULAR VOLUME 87 fL (79-100); MONO # 0.8 x10^3/uL (0.0-1.1); MONO % 9 % (0-9); NEUT # 6.9 x10^3uL (1.8-7.7); NEUT % 70 % (31-73); PLATELET COUNT 290 x10^3/uL (140-400); RED BLOOD COUNT 4.82 x10^6/uL (4.30-5.70); RED CELL DISTRIBUTION WIDTH 13.4 % (11.5-14.5)
[2018-06-15 05:40] LABS: CALCIUM 9.2 mg/dL (8.5-10.1); GFR 104.8; POTASSIUM 3.4 mmol/L (3.5-5.1)
--- NOTE | 2018-06-15 07:24 | PDOC1 ---
History and Physical Date of Admission Date of Admission DATE: 06/15/18 TIME: 07:16 Identification/Chief Complaint Chief Complaint Shortness of breath History of Present Illness History of Present Illness 32 year old M who presents with redness of breath for the last 4-5 days. 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 He reports he was out of town last week and thought maybe he caught a cold. He denies any fever or chills. He denies any chest pain. He reports he has been out of his Norvasc and hydrocodone for the last 4 days. He reports he has chronic back pain that has been worsening since he is out of his medications. Found in ED with worse c/o chest pain and high BP and SOB. His pain is described as "gas bubbles". He ran out of amlodipine 4 days ago. He feels this came on suddenly when smoking marijuana yesterday with his brother. He was trying to look for PCP so he can renew his meds but at the same time the delay is he does not have insurance. 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 He is positive for amphetamines which he denies and positive for smoking marijuana and tobacco. No ETOH abuse. No leg swelling and no PND. Denies any childhood heart disease. Of note he is originally from [place], [place] and his mother and brother at age 50 both of congestive heart failure. Strong family history of DM and HTN on his paternal side. Past Medical History Cardiovascular: No pertinent hx Pulmonary: No pertinent hx CENTRAL NERVOUS SYSTEM: TIA GI: No pertinent hx Heme/Onc: No pertinent hx Hepatobiliary: No pertinent hx Musculoskeletal: low back pain Rheumatologic: No pertinent hx Infectious disease: No pertinent hx ENT: No pertinent hx Renal/: No pertinent hx Endocrine: No pertinent hx Dermatology: No pertinent hx Past Surgical History Past Surgical History: No pertinent history Family History Family History: Diabetes, Heart Disease, Hypertension Family History: Parent (CHF in mother) Social History Smoke: 1 pack per day ALCOHOL: none Drugs: Marijuana Current Medications Current Medications Current Medications Albuterol/ Ipratropium (Duoneb) 3 ml 1X ONCE NEB Last administered on at 19:59; Start 06/14/18 at 20:00; Stop 06/14/18 at 20:01; Status DC Amlodipine Besylate (Norvasc) 5 mg 1X ONCE PO Last administered on 06/14/18at 19:53; Start 06/14/18 at 19:45; Stop 06/14/18 at 19:49; Status DC Acetaminophen/ Hydrocodone Bitart (Lortab 5/325) 1 tab 1X ONCE PO Last administered on 06/14/18at 19:52; Start 06/14/18 at 19:45; Stop 06/14/18 at 19 :49; Status DC Iohexol (Omnipaque 300 Mg/ml) 75 ml 1X ONCE IV Last administered on at 21:43; Start 06/14/18 at 21:45; Stop 06/14/18 at 21:46; Status DC Info (CONTRAST GIVEN -- Rx MONITORING) 1 each PRN DAILY PRN MC SEE COMMENTS; Start 06/14/18 at 21:45; Stop 06/16/18 at 21:44 Ceftriaxone Sodium 50 ml @ 100 mls/hr 1X ONCE IV Last administered on at 22:17; Start 06/14/18 at 22:00; Stop 06/14/18 at 22:29; Status DC Azithromycin 250 ml @ 250 mls/hr 1X ONCE IV Last administered on 06/15/18at 00:10; Start 06/14/18 at 22:00; Stop 06/14/18 at 22:59; Status DC Baclofen (Lioresal) 20 mg 1X ONCE PO Last administered on 06/14/18at 22:17; Start 06/14/18 at 22:15; Stop 06/14/18 at 22:16; Status DC Ondansetron HCl (Zofran) 4 mg PRN Q8HRS PRN IV NAUSEA/VOMITING; Start at 23:00; Stop 06/15/18 at 22:59 Morphine Sulfate (Morphine Sulfate) 4 mg PRN Q2HR PRN IV PAIN; Start 06/14/18 at 23:00; Stop 06/15/18 at 22:59 Fentanyl Citrate (Fentanyl 2ml Vial) 50 mcg PRN Q2HR PRN IV PAIN Last administered on 06/15/18at 01:22; Start 06/14/18 at 23:00; Stop 06/15/18 at 22 :59 Furosemide (Lasix) 40 mg 1X ONCE IVP Last administered on 06/15/18at 00:10; Start 06/14/18 at 23:00; Stop 06/14/18 at 23:01; Status DC Active Scripts Active Reported Hydrocodone-Apap 10-325 (Hydrocodone Bit/Acetaminophen) 1 Each Tablet 1 Tab PO BID Amlodipine Besylate 10 Mg Tablet 10 Mg PO DAILY08 Allergies Allergies: Coded Allergies: No Known Drug Allergies (Unverified , 09/28/16) ROS General: YES: Fatigue; No: Chills, Night Sweats, Malaise, Appetite, Other PSYCHOLOGICAL ROS: No: Anxiety, Behavioral Disorder, Concentration difficultie , Decreased libido, Depression, Disorientation, Hallucinations, Hostility, Irritablity, Memory difficulties, Mood Swings, Obsessive thoughts, Physical abuse, Sexual abuse, Sleep disturbances, Suicidal ideation, Other Eyes: No Blurry vision, No Decreased vision, No Double vision, No Dry eyes, No Excessive tearing, No Eye Pain, No Itchy Eyes, No Loss of vision, No Photophobia , No Scotomata, No Uses contacts, No Uses glasses, No Other HEENT: No: Heacaches, Visual Changes, Hearing change, Nasal congestion, Nasal discharge, Oral lesions, Sinus pain, Sore Throat, Epistaxis, Sneezing, Snoring, Tinnitus, Vertigo, Vocal changes, Other ALLERGY AND IMMUNOLOGY: No: Hives, Insect Bite Sensitivity, Itchy/Watery Eyes, Nasal Congestion, Post Nasal Drip, Seasonal Allergies, Other Hematological and Lymphatic: No: Bleeding Problems, Blood Clots, Blood Transfusions, Brusing, Night Sweats, Pallor, Swollen Lymph Nodes, Other ENDOCRINE: No: Breast Changes, Galactorrhea, Hair Pattern Changes, Hot Flashes , Malaise/lethargy, Mood Swings, Palpitations, Polydipsia/polyuria, Skin Changes , Temperature Intolerance, Unexpected Weight Changes, Other Breast: No New/Changing Breast Lumps, No Nipple changes, No Nipple discharge, No Other Respiratory: YES: Cough, Orthopnea, Shortness of breath, SOB with excertion; No: Hemoptysis, Pleuritic Pain, Sputum Changes, Stridor, Tachypnea, Wheezing , Other Cardiovascular: yes Chest Pain, yes Orthopnea; No Palpitations, No Paroxysmal Noc. Dyspnea, No Edema, No Lt Headedness, No Other Gastrointestinal: No Nausea, No Vomiting, No Abdominal Pain, No Diarrhea, No Constipation, No Melena, No Hematochezia, No Other Genitourinary: No Dysuria, No Frequency, No Incontinence, No Hematuria, No Retention, No Discharge, No Urgency, No Pain, No Flank Pain, No Other, No , No , No , No , No , No , No Musculoskeletal: Yes Pain In: (Lower back); No Gait Disturbance, No Joint Pain, No Joint Stiffness, No Joint Swelling, No Muscle Pain, No Muscular Weakness, No Swelling In:, No Other Neurological: No Behavorial Changes, No Bowel/Bladder ControlChng, No Confusion , No Dizziness, No Gait Disturbance, No Headaches, No Impaired Coord/balance, No Memory Loss, No Numbness/Tingling, No Seizures, No Speech Problems, No Tremors, No Visual Changes, No Weakness, No Other Skin: No Dry Skin, No Eczema, No Hair Changes, No Lumps, No Mole Changes, No Mottling, No Nail Changes, No Pruritus, No Rash, No Skin Lesion Changes, No Other, No Acne Physical Exam General: Alert, Oriented X3, Cooperative, No acute distress HEENT: Atraumatic, PERRLA, EOMI, Mucous membr. moist/pink Lungs: Other (Bibasilar crackles) Heart: S1S2, RRR, no murmurs Abdomen: Normal bowel sounds, Soft, No tenderness, No hepatosplenomegaly, No masses Rectal Exam: not examined Extremities: No clubbing, No cyanosis, No edema, Normal pulses, No tenderness/ swelling Skin: No rashes, No breakdown, No significant lesion Neuro: Normal gait, Normal speech, Strength at 5/5 X4 ext, Normal tone, Sensation intact, Cranial nerves 3-12 NL, Reflexes 2+ Psych/Mental Status: Mental status NL, Mood NL Vitals Vitals Vital Signs Date Time Temp Pulse Resp B/P (MAP) Pulse Ox O2 Delivery O2 Flow Rate FiO2 06/15/18 02:48 97.8 116 20 170/124 (139) 93 Room Air 97.8 Labs Labs Laboratory Tests Test 06/14/18 20:45 06/14/18 22:00 06/15/18 01:45 06/15/18 04:30 White Blood Count 12.0 x10^3/uL (4.0-11.0) Red Blood Count 4.78 x10^6/uL (4.30-5.70) Hemoglobin 14.4 g/dL (13.0-17.5) Hematocrit 41.2 % (39.0-53.0) Mean Corpuscular Volume 86 fL (79-100) Mean Corpuscular Hemoglobin 30 pg (25-35) Mean Corpuscular Hemoglobin Concent 35 g/dL (31-37) Red Cell Distribution Width 13.6 % (11.5-14.5) Platelet Count 298 x10^3/uL (140-400) Neutrophils (%) (Auto) 63 % (31-73) Lymphocytes (%) (Auto) 27 % (24-48) Monocytes (%) (Auto) 9 % (0-9) Eosinophils (%) (Auto) 1 % (0-3) Basophils (%) (Auto) 1 % (0-3) Neutrophils # (Auto) 7.5 x10^3uL (1.8-7.7) Lymphocytes # (Auto) 3.2 x10^3/uL (1.0-4.8) Monocytes # (Auto) 1.0 x10^3/uL (0.0-1.1) Eosinophils # (Auto) 0.1 x10^3/uL (0.0-0.7) Basophils # (Auto) 0.1 x10^3/uL (0.0-0.2) D-Dimer (Divina) 2.62 ug/mlFEU (0.00-0.50) Sodium Level 141 mmol/L (136-145) Potassium Level 3.1 mmol/L (3.5-5.1) Chloride Level 104 mmol/L (98-107) Carbon Dioxide Level 27 mmol/L (21-32) Anion Gap 10 (6-14) Blood Urea Nitrogen 10 mg/dL (8-26) Creatinine 1.0 mg/dL (0.7-1.3) Estimated GFR (Cockcroft-Gault) 104.8 BUN/Creatinine Ratio 10 (6-20) Glucose Level 94 mg/dL (70-99) Calcium Level 9.1 mg/dL (8.5-10.1) Total Bilirubin 0.6 mg/dL (0.2-1.0) Aspartate Amino Transf (AST/SGOT) 16 U/L (15-37) Alanine Aminotransferase (ALT/SGPT) 22 U/L (16-63) Alkaline Phosphatase 68 U/L (46-116) Troponin I Quantitative 0.067 ng/mL (0.000-0.055) 0.051 ng/mL (0.000-0.055) 0.045 ng/mL (0.000-0.055) YH-Bmu-I-Type Natriuretic Peptide 2104 pg/mL (0-124) Total Protein 7.7 g/dL (6.4-8.2) Albumin 3.2 g/dL (3.4-5.0) Albumin/Globulin Ratio 0.7 (1.0-1.7) Procalcitonin < 0.10 ng/mL (0.00-0.10) Urine Opiates Screen Pos (NEG) Urine Methadone Screen Neg (NEG) Urine Barbiturates Neg (NEG) Urine Phencyclidine Screen Neg (NEG) Urine Amphetamine/Methamphetamine Pos (NEG) Urine Benzodiazepines Screen Neg (NEG) Urine Cocaine Screen Neg (NEG) Urine Cannabinoids Screen Pos (NEG) Urine Ethyl Alcohol Neg (NEG) Test 06/15/18 04:35 White Blood Count 10.0 x10^3/uL (4.0-11.0) Red Blood Count 4.82 x10^6/uL (4.30-5.70) Hemoglobin 14.7 g/dL (13.0-17.5) Hematocrit 41.8 % (39.0-53.0) Mean Corpuscular Volume 87 fL (79-100) Mean Corpuscular Hemoglobin 30 pg (25-35) Mean Corpuscular Hemoglobin Concent 35 g/dL (31-37) Red Cell Distribution Width 13.4 % (11.5-14.5) Platelet Count 290 x10^3/uL (140-400) Neutrophils (%) (Auto) 70 % (31-73) Lymphocytes (%) (Auto) 20 % (24-48) Monocytes (%) (Auto) 9 % (0-9) Eosinophils (%) (Auto) 1 % (0-3) Basophils (%) (Auto) 1 % (0-3) Neutrophils # (Auto) 6.9 x10^3uL (1.8-7.7) Lymphocytes # (Auto) 2.0 x10^3/uL (1.0-4.8) Monocytes # (Auto) 0.8 x10^3/uL (0.0-1.1) Eosinophils # (Auto) 0.1 x10^3/uL (0.0-0.7) Basophils # (Auto) 0.1 x10^3/uL (0.0-0.2) Sodium Level 142 mmol/L (136-145) Potassium Level 3.4 mmol/L (3.5-5.1) Chloride Level 103 mmol/L (98-107) Carbon Dioxide Level 28 mmol/L (21-32) Anion Gap 11 (6-14) Blood Urea Nitrogen 8 mg/dL (8-26) Creatinine 1.0 mg/dL (0.7-1.3) Estimated GFR (Cockcroft-Gault) 104.8 Glucose Level 106 mg/dL (70-99) Calcium Level 9.2 mg/dL (8.5-10.1) Laboratory Tests Test 06/14/18 20:45 06/14/18 22:00 06/15/18 01:45 06/15/18 04:30 White Blood Count 12.0 x10^3/uL (4.0-11.0) Red Blood Count 4.78 x10^6/uL (4.30-5.70) Hemoglobin 14.4 g/dL (13.0-17.5) Hematocrit 41.2 % (39.0-53.0) Mean Corpuscular Volume 86 fL (79-100) Mean Corpuscular Hemoglobin 30 pg (25-35) Mean Corpuscular Hemoglobin Concent 35 g/dL (31-37) Red Cell Distribution Width 13.6 % (11.5-14.5) Platelet Count 298 x10^3/uL (140-400) Neutrophils (%) (Auto) 63 % (31-73) Lymphocytes (%) (Auto) 27 % (24-48) Monocytes (%) (Auto) 9 % (0-9) Eosinophils (%) (Auto) 1 % (0-3) Basophils (%) (Auto) 1 % (0-3) Neutrophils # (Auto) 7.5 x10^3uL (1.8-7.7) Lymphocytes # (Auto) 3.2 x10^3/uL (1.0-4.8) Monocytes # (Auto) 1.0 x10^3/uL (0.0-1.1) Eosinophils # (Auto) 0.1 x10^3/uL (0.0-0.7) Basophils # (Auto) 0.1 x10^3/uL (0.0-0.2) D-Dimer (Divina) 2.62 ug/mlFEU (0.00-0.50) Sodium Level 141 mmol/L (136-145) Potassium Level 3.1 mmol/L (3.5-5.1) Chloride Level 104 mmol/L (98-107) Carbon Dioxide Level 27 mmol/L (21-32) Anion Gap 10 (6-14) Blood Urea Nitrogen 10 mg/dL (8-26) Creatinine 1.0 mg/dL (0.7-1.3) Estimated GFR (Cockcroft-Gault) 104.8 BUN/Creatinine Ratio 10 (6-20) Glucose Level 94 mg/dL (70-99) Calcium Level 9.1 mg/dL (8.5-10.1) Total Bilirubin 0.6 mg/dL (0.2-1.0) Aspartate Amino Transf (AST/SGOT) 16 U/L (15-37) Alanine Aminotransferase (ALT/SGPT) 22 U/L (16-63) Alkaline Phosphatase 68 U/L (46-116) Troponin I Quantitative 0.067 ng/mL (0.000-0.055) 0.051 ng/mL (0.000-0.055) 0.045 ng/mL (0.000-0.055) WN-Dql-W-Type Natriuretic Peptide 2104 pg/mL (0-124) Total Protein 7.7 g/dL (6.4-8.2) Albumin 3.2 g/dL (3.4-5.0) Albumin/Globulin Ratio 0.7 (1.0-1.7) Procalcitonin < 0.10 ng/mL (0.00-0.10) Urine Opiates Screen Pos (NEG) Urine Methadone Screen Neg (NEG) Urine Barbiturates Neg (NEG) Urine Phencyclidine Screen Neg (NEG) Urine Amphetamine/Methamphetamine Pos (NEG) Urine Benzodiazepines Screen Neg (NEG) Urine Cocaine Screen Neg (NEG) Urine Cannabinoids Screen Pos (NEG) Urine Ethyl Alcohol Neg (NEG) Test 06/15/18 04:35 White Blood Count 10.0 x10^3/uL (4.0-11.0) Red Blood Count 4.82 x10^6/uL (4.30-5.70) Hemoglobin 14.7 g/dL (13.0-17.5) Hematocrit 41.8 % (39.0-53.0) Mean Corpuscular Volume 87 fL (79-100) Mean Corpuscular Hemoglobin 30 pg (25-35) Mean Corpuscular Hemoglobin Concent 35 g/dL (31-37) Red Cell Distribution Width 13.4 % (11.5-14.5) Platelet Count 290 x10^3/uL (140-400) Neutrophils (%) (Auto) 70 % (31-73) Lymphocytes (%) (Auto) 20 % (24-48) Monocytes (%) (Auto) 9 % (0-9) Eosinophils (%) (Auto) 1 % (0-3) Basophils (%) (Auto) 1 % (0-3) Neutrophils # (Auto) 6.9 x10^3uL (1.8-7.7) Lymphocytes # (Auto) 2.0 x10^3/uL (1.0-4.8) Monocytes # (Auto) 0.8 x10^3/uL (0.0-1.1) Eosinophils # (Auto) 0.1 x10^3/uL (0.0-0.7) Basophils # (Auto) 0.1 x10^3/uL (0.0-0.2) Sodium Level 142 mmol/L (136-145) Potassium Level 3.4 mmol/L (3.5-5.1) Chloride Level 103 mmol/L (98-107) Carbon Dioxide Level 28 mmol/L (21-32) Anion Gap 11 (6-14) Blood Urea Nitrogen 8 mg/dL (8-26) Creatinine 1.0 mg/dL (0.7-1.3) Estimated GFR (Cockcroft-Gault) 104.8 Glucose Level 106 mg/dL (70-99) Calcium Level 9.2 mg/dL (8.5-10.1) VTE Prophylaxis Ordered VTE Prophylaxis Devices: No VTE Pharmacological Prophylaxi: Yes Assessment/Plan Assessment/Plan A/P: Pulmonary edema - noted on CXR - possibly 2/2 CHF, increased demand. Consult cardiology, echo today, will start arb, cont norvasc, wait on BB until his respiratory status improves out of acute phase Malignant HTN - due to substance abuse and compliance difficulties. End organ damage with elevated troponin Polysubstance abuse - +UDS for amphetamines, marijuana and opiates. Mildly elevated troponin - peaked at 0.067, type 2 demand mediated with culprits above. Cardiology consulted Hypokalemia - replaced, ARB will help. monitor Tobaccoism - advised to quit Hx of CVA: 2 yrs ago no residual Compliance difficulties - ran out of norvasc 4 days ago. Needs insurance and PCP Diet - Cardiac PPX - heparin Full code Inpatient for accelerated HTN with cardiac damage MAGUE RUIZ MD Jun 15, 2018 07:24
[2018-06-15] MEDS ORDERED: 0.9 % SODIUM CHLORIDE 10 ML DISP.SYRIN. IV PRN (07:30)
[2018-06-15] MEDS ORDERED: ONDANSETRON PF 4 MG/2 ML VIAL. IV PRN (07:30)
[2018-06-15] MEDS ORDERED: LACTULOSE 20 GM/30 ML SOLUTION. PO PRN (07:30)
[2018-06-15] MEDS ORDERED: ENALAPRILAT 1.25 MG/ML VIAL. IVP PRN (07:30)
[2018-06-15] MEDS ORDERED: POTASSIUM CHLORIDE 20 MEQ TABLET.ER. PO ONE (08:00)
[2018-06-15] MEDS ORDERED: amLODIPine BESYLATE 10 MG TABLET PO SCH (08:00)
[2018-06-15] MEDS: IPRATRPIUM/ALBUTEROL 0.5/2.5MG 3 ML NEBU. NEB SCH ×4 (08:00→19:50)
[2018-06-15] MEDS: FUROSEMIDE 20 MG/2 ML VIAL. IVP SCH ×2 (08:14→14:47)
[2018-06-15] MEDS: traMADol 50 MG TABLET PO PRN ×2 (08:15→20:16)
[2018-06-15 08:31] LABS: MAGNESIUM 1.8 mg/dL (1.8-2.4)
[2018-06-15 08:33] LABS: CHOLESTEROL/HDL RATIO 5.6
[2018-06-15] MEDS ORDERED: cloNIDine HCL 0.2 MG TABLET PO PRN (08:45)
[2018-06-15] MEDS: HYDROcodone/APAP 5/325MG 1 TAB TABLET PO PRN ×2 (08:49→17:20)
--- NOTE | 2018-06-15 08:56 | PDOC2 ---
BRUCE [facility]HAWA [employer] 06/15/18 0856: CARDIAC CONSULT DATE OF CONSULT Date of Consult DATE: 06/15/18 TIME: 08:29 REASON FOR CONSULT Reason for Consult: New CHF, elevated trop REFERRING PHYSICIAN Referring Physician: Renee SOURCE Source: Chart review, Patient HISTORY OF PRESENT ILLNESS HISTORY OF PRESENT ILLNESS This is a pleasant 32 yo AA male admitted for complains of chest pain and high BP and SOA. Reports that he has been having high in the last 2 weeks. He ran out of amlodipine 4 days ago. He was trying to look for PCP so he can renew his meds but at the same time the delay is he does not have insurance. Reports that he has had stroke with no residual 2 yrs ago and possibly from [place] quil he said. He is positive for amphetamines which he denies and positive for smoking marijuana and tobacco. No ETOH abuse. Reports that yesterday he started getting SOA and had a little dull achy sensation to his left chest. No dizziness or palpiations but has had BOWERS in the last few days during exertion. No leg swelling and no PND. Denies any childhood heart disease. PAST MEDICAL HISTORY Cardiovascular: HTN CENTRAL NERVOUS SYSTEM: CVA Psych: Other (substance abuse) Musculoskeletal: Other (lumbar stenosis, herniated disc) PAST SURGICAL HISTORY Past Surgical History: No pertinent history FAMILY HISTORY Family History: Diabetes (father), Heart Disease (mother ) SOCIAL HISTORY Smoke: 2 packs per day (1.5 ) ALCOHOL: occassional Drugs: Cocaine, Marijuana Lives: with Family CURRENT MEDICATIONS CURRENT MEDICATIONS Current Medications Medications (Trade) Dose Ordered Sig/Walker Route PRN Reason Start Time Stop Time Status Last Admin Dose Admin Albuterol/ Ipratropium (Duoneb) 3 ml 1X ONCE NEB 06/14/18 20:00 06/14/18 20:01 DC 06/14/18 19:59 Amlodipine Besylate (Norvasc) 5 mg 1X ONCE PO 06/14/18 19:45 06/14/18 19:49 DC 06/14/18 19:53 Acetaminophen/ Hydrocodone Bitart (Lortab 5/325) 1 tab 1X ONCE PO 06/14/18 19:45 06/14/18 19:49 DC 06/14/18 19:52 Iohexol (Omnipaque 300 Mg/ml) 75 ml 1X ONCE IV 06/14/18 21:45 06/14/18 21:46 DC 06/14/18 21:43 Ceftriaxone Sodium 50 ml @ 100 mls/hr 1X ONCE IV 06/14/18 22:00 06/14/18 22:29 DC 06/14/18 22:17 Azithromycin 250 ml @ 250 mls/hr 1X ONCE IV 06/14/18 22:00 06/14/18 22:59 DC 06/15/18 00:10 Baclofen (Lioresal) 20 mg 1X ONCE PO 06/14/18 22:15 06/14/18 22:16 DC 06/14/18 22:17 Fentanyl Citrate (Fentanyl 2ml Vial) 50 mcg PRN Q2HR PRN IV PAIN 06/14/18 23:00 06/15/18 22:59 06/15/18 01:22 Furosemide (Lasix) 40 mg 1X ONCE IVP 06/14/18 23:00 06/14/18 23:01 DC 06/15/18 00:10 Potassium Chloride (Klor-Con) 40 meq 1X ONCE PO 06/15/18 08:00 06/15/18 08:01 DC 06/15/18 08:13 Amlodipine Besylate (Norvasc) 10 mg DAILY08 PO 06/15/18 08:00 06/15/18 08:13 Furosemide (Lasix) 20 mg BID92 IVP 06/15/18 09:00 06/15/18 08:14 ALLERGIES ALLERGIES: Coded Allergies: No Known Drug Allergies (Unverified , 09/28/16) ROS Review of System 14 point ROS evaluated with pertinent positives noted per HPI PHYSICAL EXAM General: Alert, Oriented X3, Cooperative, No acute distress HEENT: Atraumatic, Mucous membr. moist/pink Lungs: Normal air movement, Other (faint basilar crackles) Heart: Regular rate (sinus tach), Other (2/6 systolic murmur to LLS border, Ss) Extremities: No cyanosis, No edema Skin: No breakdown, No significant lesion Neuro: Normal speech, Sensation intact Psych/Mental Status: Mental status NL, Mood NL MUSCULOSKELETAL: Full range of motion without pain VITALS VITALS Vital Signs Date Time Temp Pulse Resp B/P (MAP) Pulse Ox O2 Delivery O2 Flow Rate FiO2 06/15/18 08:13 112 171/117 06/15/18 02:48 97.8 20 93 Room Air 97.8 LABS Lab: Laboratory Tests Test 06/14/18 20:45 06/14/18 22:00 06/15/18 01:45 06/15/18 04:30 White Blood Count 12.0 x10^3/uL (4.0-11.0) Red Blood Count 4.78 x10^6/uL (4.30-5.70) Hemoglobin 14.4 g/dL (13.0-17.5) Hematocrit 41.2 % (39.0-53.0) Mean Corpuscular Volume 86 fL (79-100) Mean Corpuscular Hemoglobin 30 pg (25-35) Mean Corpuscular Hemoglobin Concent 35 g/dL (31-37) Red Cell Distribution Width 13.6 % (11.5-14.5) Platelet Count 298 x10^3/uL (140-400) Neutrophils (%) (Auto) 63 % (31-73) Lymphocytes (%) (Auto) 27 % (24-48) Monocytes (%) (Auto) 9 % (0-9) Eosinophils (%) (Auto) 1 % (0-3) Basophils (%) (Auto) 1 % (0-3) Neutrophils # (Auto) 7.5 x10^3uL (1.8-7.7) Lymphocytes # (Auto) 3.2 x10^3/uL (1.0-4.8) Monocytes # (Auto) 1.0 x10^3/uL (0.0-1.1) Eosinophils # (Auto) 0.1 x10^3/uL (0.0-0.7) Basophils # (Auto) 0.1 x10^3/uL (0.0-0.2) D-Dimer (Divina) 2.62 ug/mlFEU (0.00-0.50) Sodium Level 141 mmol/L (136-145) Potassium Level 3.1 mmol/L (3.5-5.1) Chloride Level 104 mmol/L (98-107) Carbon Dioxide Level 27 mmol/L (21-32) Anion Gap 10 (6-14) Blood Urea Nitrogen 10 mg/dL (8-26) Creatinine 1.0 mg/dL (0.7-1.3) Estimated GFR (Cockcroft-Gault) 104.8 BUN/Creatinine Ratio 10 (6-20) Glucose Level 94 mg/dL (70-99) Calcium Level 9.1 mg/dL (8.5-10.1) Total Bilirubin 0.6 mg/dL (0.2-1.0) Aspartate Amino Transf (AST/SGOT) 16 U/L (15-37) Alanine Aminotransferase (ALT/SGPT) 22 U/L (16-63) Alkaline Phosphatase 68 U/L (46-116) Troponin I Quantitative 0.067 ng/mL (0.000-0.055) 0.051 ng/mL (0.000-0.055) 0.045 ng/mL (0.000-0.055) RT-Xbk-X-Type Natriuretic Peptide 2104 pg/mL (0-124) Total Protein 7.7 g/dL (6.4-8.2) Albumin 3.2 g/dL (3.4-5.0) Albumin/Globulin Ratio 0.7 (1.0-1.7) Procalcitonin < 0.10 ng/mL (0.00-0.10) Urine Opiates Screen Pos (NEG) Urine Methadone Screen Neg (NEG) Urine Barbiturates Neg (NEG) Urine Phencyclidine Screen Neg (NEG) Urine Amphetamine/Methamphetamine Pos (NEG) Urine Benzodiazepines Screen Neg (NEG) Urine Cocaine Screen Neg (NEG) Urine Cannabinoids Screen Pos (NEG) Urine Ethyl Alcohol Neg (NEG) Test 06/15/18 04:35 06/15/18 07:50 White Blood Count 10.0 x10^3/uL (4.0-11.0) Red Blood Count 4.82 x10^6/uL (4.30-5.70) Hemoglobin 14.7 g/dL (13.0-17.5) Hematocrit 41.8 % (39.0-53.0) Mean Corpuscular Volume 87 fL (79-100) Mean Corpuscular Hemoglobin 30 pg (25-35) Mean Corpuscular Hemoglobin Concent 35 g/dL (31-37) Red Cell Distribution Width 13.4 % (11.5-14.5) Platelet Count 290 x10^3/uL (140-400) Neutrophils (%) (Auto) 70 % (31-73) Lymphocytes (%) (Auto) 20 % (24-48) Monocytes (%) (Auto) 9 % (0-9) Eosinophils (%) (Auto) 1 % (0-3) Basophils (%) (Auto) 1 % (0-3) Neutrophils # (Auto) 6.9 x10^3uL (1.8-7.7) Lymphocytes # (Auto) 2.0 x10^3/uL (1.0-4.8) Monocytes # (Auto) 0.8 x10^3/uL (0.0-1.1) Eosinophils # (Auto) 0.1 x10^3/uL (0.0-0.7) Basophils # (Auto) 0.1 x10^3/uL (0.0-0.2) Sodium Level 142 mmol/L (136-145) Potassium Level 3.4 mmol/L (3.5-5.1) Chloride Level 103 mmol/L (98-107) Carbon Dioxide Level 28 mmol/L (21-32) Anion Gap 11 (6-14) Blood Urea Nitrogen 8 mg/dL (8-26) Creatinine 1.0 mg/dL (0.7-1.3) Estimated GFR (Cockcroft-Gault) 104.8 Glucose Level 106 mg/dL (70-99) Calcium Level 9.2 mg/dL (8.5-10.1) Glucose (Fingerstick) 101 mg/dL (70-99) ASSESSMENT/PLAN ASSESSMENT/PLAN 1. Malignant HTN: due to substance abuse and noncompliance 2. Polysubstance abuse: +UDS for amphetamines, marijuana and opiates. 3. Acute diastolic CHF: due to above 4. Mildly elevated troponin: peaked at 0.067, type 2 demand mediated with culprits above. 5. Hypokalemia 6. Reactive sinus tach: due to above. 7. Tobaccoism 8. Hx of CVA: 2 yrs ago no residual 9. Noncompliance: ran out of [email or web address] 4 days ago. Recommendations 1. Substance abuse cessation. Smoking cessation 2. TTE, TSH, Mg, lipids 3. ASA 81 mg. Statin per lipid panel. 4. Replace K. Start losartan, continue amlodipine. Lasix therapy. PRN clonidine. 5. Lifestyle modification. discussed compliance. DASH diet. SANJUANA DRISCOLL MD 06/16/18 1033: CARDIAC CONSULT ASSESSMENT/PLAN ASSESSMENT/PLAN Patient seen and examined 06/15/18. Agree with ENVIRONMENTAL REMEDIATION CONSULTANT's assessment and plan. Accelerated hypertension secondary to noncompliance with medication and substance abuse Slight troponin elevation probably demand ischemia secondary to uncontrolled hypertension 2-D echo showed LVEF 30% Continue diuretics for acute on chronic systolic heart failure Plan for Lexiscan nuclear stress test to rule out ischemic etiology of his cardiomyopathy Thank you for your consultation BRUCE RANDHAWA APRN Jun 15, 2018 08:56 SANJUANA DRISCOLL MD Jun 16, 2018 10:33
[2018-06-15] MEDS: SENNOSIDES/DOCUSATE 8.6/50MG TABLET. PO SCH ×2 (09:00→20:16)
[2018-06-15] MEDS: ASPIRIN ENTERIC COATED 81 MG TABLET.DR. PO SCH (09:28)
[2018-06-15] MEDS: LOSARTAN POTASSIUM 50 MG TABLET. PO SCH (09:28)
--- NOTE | 2018-06-15 11:58 | CARD ---
MR#: [id number] Date of Study: 06/15/2018 Ordering Physician: MAGUE RUIZ, Referring Physician: MAGUE RUIZ, Tech: Gayle Arroyo FREDIS APPROVED REPORT EXAM: Two-dimensional and M-mode echocardiogram with Doppler and color Doppler. Other Information Quality : Good INDICATION Congestive Heart Failure 2D DIMENSIONS RVDd2.9 (2.9-3.5cm)Left Atrium(2D)3.6 (1.6-4.0cm) IVSd1.4 (0.7-1.1cm)Aortic Root(2D)2.9 (2.0-3.7cm) LVDd5.6 (3.9-5.9cm)LVOT Diameter2.1 (1.8-2.4cm) PWd1.4 (0.7-1.1cm)LVDs4.9 (2.5-4.0cm) FS (%) 12.6 %SV41.2 ml LVEF(%)26.7 (>50%) Aortic Valve AoV Peak Davi.88.0cm/sAoV VTI13.0cm AO Peak GR.3.1mmHgLVOT Peak Davi.74.5cm/s LVOT VTI 11.08cmAO Mean GR.2mmHg AAKASH (VMAX)3.57bu0UTL (VTI)3.08cm2 Mitral Valve MV E Qqmtwxqg259.2cm/sMV DECEL WXBS054dm MV GCK88lmGHS (PHT)6.39cm2 Tricuspid Valve TR P. Qkuwwxal544bs/sRAP NQSHJGVE5dcDg TR Peak Gr.75ipWkNPSQ38avBx Pulmonary Vein S1 Uocbmdwf00.0cm/sD2 Nvzrkmgv86.2cm/s LEFT VENTRICLE The left ventricle is normal size. There is mild concentric left ventricular hypertrophy. Severe LV d ysfunction. EF 30% There is severe global hypokinesis of the left ventricle. Tissue Doppler imaging r eveals moderate left ventricular diastolic dysfunction. RIGHT VENTRICLE The right ventricle is normal size. The right ventricular systolic function is normal. ATRIA The left atrium size is normal. The right atrium size is normal. The interatrial septum is intact wit h no evidence for an atrial septal defect or patent foramen ovale as noted on 2-D or Doppler imaging. AORTIC VALVE Not well visualized. Doppler and Color Flow revealed no significant aortic regurgitation. There is no significant aortic valvular stenosis. MITRAL VALVE The mitral valve is normal in structure and function. There is no evidence of mitral valve prolapse. There is no mitral valve stenosis. Doppler and Color-flow revealed mild to moderate mitral regurgitat ion. TRICUSPID VALVE The tricuspid valve is normal in structure and function. Doppler and Color Flow revealed trace to mil d tricuspid regurgitation. There is moderate pulmonary hypertension. The PA pressure was estimated at 56 mmHg. There is no tricuspid valve stenosis. PULMONIC VALVE Doppler and Color Flow revealed trace pulmonic valvular regurgitation. There is no pulmonic valvular stenosis. GREAT VESSELS The aortic root is normal in size. The ascending aorta is normal in size. The IVC is normal in size a nd collapses >50% with inspiration. PERICARDIAL EFFUSION There is no evidence of significant pericardial effusion. Critical Notification Critical Value: No <Conclusion> Severe LV dysfunction. EF 30% There is severe global hypokinesis of the left ventricle. Doppler and Color-flow revealed mild to moderate mitral regurgitation. Doppler and Color Flow revealed trace to mild tricuspid regurgitation. There is moderate pulmonary hy pertension. The PA pressure was estimated at 56 mmHg. Signed by : Jona Gomez, Electronically Approved : 06/15/2018 11:57:39
--- NOTE | 2018-06-15 14:04 | CONS ---
DATE OF CONSULTATION: PULMONARY CONSULTATION ATTENDING PHYSICIAN: Supa Bernal M.D. REASON FOR CONSULTATION: Dyspnea and abnormal CT chest. HISTORY OF PRESENT ILLNESS: The patient is a 32-year-old male who has been a smoker for 12 years and also smokes marijuana. He was brought into the hospital complaining of shortness of breath for the last 3-4 days. He also developed a cough yesterday and mild dyspnea. 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 He said he went out and delivered a load and was it raining and he thought he had a cold, but he had no obvious fever, chills, no chest pains. The patient was seen in the Emergency Room, where a CT chest was performed, which was reviewed by me and it shows no pulmonary embolism, but bilateral ground-glass, nodular and alveolar infiltrates, worse on the right than on the left. As a result, he was hospitalized. He also had an echocardiogram which shows an EF of 30% only. He also has done cocaine for 3 years in his teenage years. He is on room air. I have been asked to see him for further evaluation. PAST MEDICAL HISTORY: Essentially unremarkable. PAST SURGICAL HISTORY: No recent surgeries. FAMILY HISTORY: Noncontributory to lungs. ALLERGIES: None. CURRENT MEDICATIONS: Reviewed as listed in the MRAD, including IV Lasix. SOCIAL HISTORY: He smoked marijuana, did cocaine for 3 years in his teenage years and does smoke cigarettes for the last 10-12 years, a pack a day and also meth p.r.n. PHYSICAL EXAMINATION: VITAL SIGNS: Blood pressure 160/121, pulse ox 97% on room air, afebrile. HEENT: Sclerae nonicteric. NECK: Supple. LUNGS: With diminished breath sounds. CARDIOVASCULAR EXAMINATION: Regular rate and rhythm. ABDOMEN: Soft. EXTREMITIES: With no pitting edema. LABORATORY DATA: Labs were reviewed. White cell count initially 12,000, now 10. Platelets are 290,000. BUN and creatinine 8 and 1.0. IMPRESSION: 1. Dyspnea with hemoptysis with bilateral diffuse ground glass, alveolar and some nodular infiltrates. The differential diagnosis could be multifactorial; however, in the setting of an EF of 30%, pulmonary edema would be a likely etiology. Other possibilities would include acute lung injury secondary to meth/marijuana versus pneumonia. 2. Ongoing tobacco use and substance abuse. 3. Severe cardiomyopathy with an ejection ysigenur72%, could be viral, but needs further evaluation by Cardiology. There is [id number] mitral regurgitation as well. RECOMMENDATIONS AND PLAN: 1. We will continue diuresis. 2. Follow up chest x-ray in the next 24 hours. 3. Add empiric antibiotics. 4. If the chest x-ray improves with diuresis, then antibiotics can be discontinued. 5. Counseling was provided regarding drug cessation. 6. Await Cardiology input. 7. Discussed with RN. CLIFF WARD MD DR: BENITO/marisa JOB#: [id number] / [id number]
[2018-06-15] MEDS: DOXYCYCLINE HYCLATE 100 MG TABLET PO SCH ×2 (14:47→20:16)
[2018-06-15] MEDS: LACTOBACILLUS RHAMNOSUS GG 1 CAPSULE. PO SCH (20:16)
[2018-06-16 03:00] VITALS: BP 104/53
[2018-06-16 07:00] VITALS: BP 163/112
[2018-06-16] MEDS: IPRATRPIUM/ALBUTEROL 0.5/2.5MG 3 ML NEBU. NEB SCH ×3 (07:03→16:22)
--- NOTE | 2018-06-16 07:22 | PDOC ---
PROGRESS NOTES Chief Complaint Chief Complaint A/P: Acute reduced ejection fraction CHF - with Pulmonary edema Malignant HTN Polysubstance abuse Mildly elevated troponin Hypokalemia Tobacco abuse Hx of CVA Compliance difficulties History of Present Illness History of Present Illness 32 year old M who presents with redness of breath for the last 4-5 days. 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 He reports he was out of town last week and thought maybe he caught a cold. He denies any fever or chills. He denies any chest pain. He reports he has been out of his Norvasc and hydrocodone for the last 4 days. He reports he has chronic back pain that has been worsening since he is out of his medications. Found in ED with worse c/o chest pain and high BP and SOB. His pain is described as "gas bubbles". He ran out of amlodipine 4 days ago. He feels this came on suddenly when smoking marijuana yesterday with his brother. He was trying to look for PCP so he can renew his meds but at the same time the delay is he does not have insurance. 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 He is positive for amphetamines which he denies and positive for smoking marijuana and tobacco. No ETOH abuse. No leg swelling and no PND. Denies any childhood heart disease. Of note he is originally from [place], [place] and his mother and brother at age 50 both of congestive heart failure. Strong family history of DM and HTN on his paternal side. He is feeling better after starting back on his norvasc, losartan, ASA, statin, and lasix last night. Discussed his diagnosis of cardiomyopathy with him and his girlfriend, bedside. He insists he did not use amphetamine, just marijuana. Ready for stress testing today. A/P: Acute reduced ejection fraction CHF - with Pulmonary edema - noted on CXR - Consulted cardiology, echo EF 30%, possibly amphetamine vs genetic/familial, started arb, cont norvasc, can start on BB now that his respiratory status improving Malignant HTN - due to substance abuse and compliance difficulties. End organ damage with elevated troponin Polysubstance abuse - +UDS for amphetamines, marijuana and opiates. Mildly elevated troponin - peaked at 0.067, type 2 demand mediated with culprits above. Cardiology consulted Hypokalemia - replaced, ARB will help. monitor Tobaccoism - advised to quit Hx of CVA: 2 yrs ago no residual Compliance difficulties - ran out of Sezion 4 days ago. Needs insurance and PCP Diet - Cardiac PPX - heparin Full code Inpatient for accelerated HTN with cardiac damage Vitals Vitals Vital Signs Date Time Temp Pulse Resp B/P (MAP) Pulse Ox O2 Delivery O2 Flow Rate FiO2 06/16/18 07:04 Room Air 06/16/18 03:00 98.9 87 18 104/53 (70) 94 98.9 Physical Exam General: Alert, Oriented X3, Cooperative, No acute distress Heart: Regular rate (sinus tach), Other (2/6 systolic murmur to LLS border, Ss) Abdomen: Normal bowel sounds, Soft, No tenderness, No hepatosplenomegaly, No masses Extremities: No clubbing, No cyanosis, No edema, Normal pulses, No tenderness/ swelling Skin: No rashes, No breakdown, No significant lesion Labs LABS Laboratory Tests Test 06/15/18 07:50 Glucose (Fingerstick) 101 mg/dL (70-99) Comment Review of Relevant I have reviewed the following items greg (where applicable) has been applied. Labs Laboratory Tests Test 06/14/18 20:45 06/14/18 22:00 06/15/18 01:45 06/15/18 04:30 White Blood Count 12.0 x10^3/uL (4.0-11.0) Red Blood Count 4.78 x10^6/uL (4.30-5.70) Hemoglobin 14.4 g/dL (13.0-17.5) Hematocrit 41.2 % (39.0-53.0) Mean Corpuscular Volume 86 fL (79-100) Mean Corpuscular Hemoglobin 30 pg (25-35) Mean Corpuscular Hemoglobin Concent 35 g/dL (31-37) Red Cell Distribution Width 13.6 % (11.5-14.5) Platelet Count 298 x10^3/uL (140-400) Neutrophils (%) (Auto) 63 % (31-73) Lymphocytes (%) (Auto) 27 % (24-48) Monocytes (%) (Auto) 9 % (0-9) Eosinophils (%) (Auto) 1 % (0-3) Basophils (%) (Auto) 1 % (0-3) Neutrophils # (Auto) 7.5 x10^3uL (1.8-7.7) Lymphocytes # (Auto) 3.2 x10^3/uL (1.0-4.8) Monocytes # (Auto) 1.0 x10^3/uL (0.0-1.1) Eosinophils # (Auto) 0.1 x10^3/uL (0.0-0.7) Basophils # (Auto) 0.1 x10^3/uL (0.0-0.2) D-Dimer (Divina) 2.62 ug/mlFEU (0.00-0.50) Sodium Level 141 mmol/L (136-145) Potassium Level 3.1 mmol/L (3.5-5.1) Chloride Level 104 mmol/L (98-107) Carbon Dioxide Level 27 mmol/L (21-32) Anion Gap 10 (6-14) Blood Urea Nitrogen 10 mg/dL (8-26) Creatinine 1.0 mg/dL (0.7-1.3) Estimated GFR (Cockcroft-Gault) 104.8 BUN/Creatinine Ratio 10 (6-20) Glucose Level 94 mg/dL (70-99) Calcium Level 9.1 mg/dL (8.5-10.1) Total Bilirubin 0.6 mg/dL (0.2-1.0) Aspartate Amino Transf (AST/SGOT) 16 U/L (15-37) Alanine Aminotransferase (ALT/SGPT) 22 U/L (16-63) Alkaline Phosphatase 68 U/L (46-116) Troponin I Quantitative 0.067 ng/mL (0.000-0.055) 0.051 ng/mL (0.000-0.055) 0.045 ng/mL (0.000-0.055) GB-Jnr-M-Type Natriuretic Peptide 2104 pg/mL (0-124) Total Protein 7.7 g/dL (6.4-8.2) Albumin 3.2 g/dL (3.4-5.0) Albumin/Globulin Ratio 0.7 (1.0-1.7) Procalcitonin < 0.10 ng/mL (0.00-0.10) Urine Opiates Screen Pos (NEG) Urine Methadone Screen Neg (NEG) Urine Barbiturates Neg (NEG) Urine Phencyclidine Screen Neg (NEG) Urine Amphetamine/Methamphetamine Pos (NEG) Urine Benzodiazepines Screen Neg (NEG) Urine Cocaine Screen Neg (NEG) Urine Cannabinoids Screen Pos (NEG) Urine Ethyl Alcohol Neg (NEG) Magnesium Level 1.8 mg/dL (1.8-2.4) Triglycerides Level 106 mg/dL (0-150) Cholesterol Level 236 mg/dL (0-200) LDL Cholesterol, Calculated 173 mg/dL (0-100) VLDL Cholesterol, Calculated 21 mg/dL (0-40) Non-HDL Cholesterol Calculated 194 mg/dL (0-129) HDL Cholesterol 42 mg/dL (40-60) Cholesterol/HDL Ratio 5.6 Thyroid Stimulating Hormone (TSH) 1.129 uIU/mL (0.358-3.74) Test 06/15/18 04:35 06/15/18 07:50 White Blood Count 10.0 x10^3/uL (4.0-11.0) Red Blood Count 4.82 x10^6/uL (4.30-5.70) Hemoglobin 14.7 g/dL (13.0-17.5) Hematocrit 41.8 % (39.0-53.0) Mean Corpuscular Volume 87 fL (79-100) Mean Corpuscular Hemoglobin 30 pg (25-35) Mean Corpuscular Hemoglobin Concent 35 g/dL (31-37) Red Cell Distribution Width 13.4 % (11.5-14.5) Platelet Count 290 x10^3/uL (140-400) Neutrophils (%) (Auto) 70 % (31-73) Lymphocytes (%) (Auto) 20 % (24-48) Monocytes (%) (Auto) 9 % (0-9) Eosinophils (%) (Auto) 1 % (0-3) Basophils (%) (Auto) 1 % (0-3) Neutrophils # (Auto) 6.9 x10^3uL (1.8-7.7) Lymphocytes # (Auto) 2.0 x10^3/uL (1.0-4.8) Monocytes # (Auto) 0.8 x10^3/uL (0.0-1.1) Eosinophils # (Auto) 0.1 x10^3/uL (0.0-0.7) Basophils # (Auto) 0.1 x10^3/uL (0.0-0.2) Sodium Level 142 mmol/L (136-145) Potassium Level 3.4 mmol/L (3.5-5.1) Chloride Level 103 mmol/L (98-107) Carbon Dioxide Level 28 mmol/L (21-32) Anion Gap 11 (6-14) Blood Urea Nitrogen 8 mg/dL (8-26) Creatinine 1.0 mg/dL (0.7-1.3) Estimated GFR (Cockcroft-Gault) 104.8 Glucose Level 106 mg/dL (70-99) Calcium Level 9.2 mg/dL (8.5-10.1) Glucose (Fingerstick) 101 mg/dL (70-99) Laboratory Tests Test 06/15/18 07:50 Glucose (Fingerstick) 101 mg/dL (70-99) Microbiology 06/14/18 Blood Culture - Preliminary, Resulted NO GROWTH AFTER 1 DAY Medications Current Medications Albuterol/ Ipratropium (Duoneb) 3 ml 1X ONCE NEB Last administered on at 19:59; Start 06/14/18 at 20:00; Stop 06/14/18 at 20:01; Status DC Amlodipine Besylate (Norvasc) 5 mg 1X ONCE PO Last administered on 06/14/18at 19:53; Start 06/14/18 at 19:45; Stop 06/14/18 at 19:49; Status DC Acetaminophen/ Hydrocodone Bitart (Lortab 5/325) 1 tab 1X ONCE PO Last administered on 06/14/18at 19:52; Start 06/14/18 at 19:45; Stop 06/14/18 at 19 :49; Status DC Iohexol (Omnipaque 300 Mg/ml) 75 ml 1X ONCE IV Last administered on at 21:43; Start 06/14/18 at 21:45; Stop 06/14/18 at 21:46; Status DC Info (CONTRAST GIVEN -- Rx MONITORING) 1 each PRN DAILY PRN MC SEE COMMENTS; Start 06/14/18 at 21:45; Stop 06/16/18 at 21:44 Ceftriaxone Sodium 50 ml @ 100 mls/hr 1X ONCE IV Last administered on at 22:17; Start 06/14/18 at 22:00; Stop 06/14/18 at 22:29; Status DC Azithromycin 250 ml @ 250 mls/hr 1X ONCE IV Last administered on 06/15/18at 00:10; Start 06/14/18 at 22:00; Stop 06/14/18 at 22:59; Status DC Baclofen (Lioresal) 20 mg 1X ONCE PO Last administered on 06/14/18at 22:17; Start 06/14/18 at 22:15; Stop 06/14/18 at 22:16; Status DC Ondansetron HCl (Zofran) 4 mg PRN Q8HRS PRN IV NAUSEA/VOMITING; Start at 23:00; Stop 06/15/18 at 22:59; Status DC Morphine Sulfate (Morphine Sulfate) 4 mg PRN Q2HR PRN IV PAIN; Start 06/14/18 at 23:00; Stop 06/15/18 at 22:59; Status DC Fentanyl Citrate (Fentanyl 2ml Vial) 50 mcg PRN Q2HR PRN IV PAIN Last administered on 06/15/18at 21:32; Start 06/14/18 at 23:00; Stop 06/15/18 at 22 :59; Status DC Furosemide (Lasix) 40 mg 1X ONCE IVP Last administered on 06/15/18at 00:10; Start 06/14/18 at 23:00; Stop 06/14/18 at 23:01; Status DC Potassium Chloride (Klor-Con) 40 meq 1X ONCE PO Last administered on at 08:13; Start 06/15/18 at 08:00; Stop 06/15/18 at 08:01; Status DC Ondansetron HCl (Zofran) 4 mg PRN Q6HRS PRN IV NAUSEA/VOMITING; Start at 07:30 Sodium Chloride (Normal Saline Flush) 3 ml QSHIFT PRN IV AFTER MEDS AND BLOOD DRAWS; Start 06/15/18 at 07:30 Senna/Docusate Sodium (Senna Plus) 1 tab BID PO Last administered on at 20:16; Start 06/15/18 at 09:00 Lactulose (Lactulose) 20 gm PRN Q12HR PRN PO CONSTIPATION; Start 06/15/18 at 07:30 Amlodipine Besylate (Norvasc) 10 mg DAILY08 PO Last administered on 06/15/18at 08:13; Start 06/15/18 at 08:00 Albuterol/ Ipratropium (Duoneb) 3 ml RTQID NEB Last administered on 06/16/18at 07:03; Start 06/15/18 at 08:00 Enalaprilat (Vasotec Inj) 1.25 mg PRN Q6HRS PRN IVP HYPERTENSION, SEE COMMENTS ; Start 06/15/18 at 07:30; Stop 06/15/18 at 08:56; Status DC Furosemide (Lasix) 20 mg BID92 IVP Last administered on 06/15/18at 14:47; Start 06/15/18 at 09:00 Tramadol HCl (Ultram) 50 mg PRN Q6HRS PRN PO MILD PAIN Last administered on at 20:16; Start 06/15/18 at 08:00 Acetaminophen/ Hydrocodone Bitart (Lortab 5/325) 1 tab PRN Q6HRS PRN PO MODERATE-SEVERE PAIN Last administered on 06/15/18at 17:20; Start 06/15/18 at 08:30 Losartan Potassium (Cozaar) 100 mg DAILY PO Last administered on 06/15/18at 09: 28; Start 06/15/18 at 09:30 Aspirin (Ecotrin) 81 mg DAILYWBKFT PO Last administered on 06/15/18at 09:28; Start 06/15/18 at 09:30 Clonidine HCl (Catapres) 0.2 mg PRN Q4HRS PRN PO HYPERTENSION, SEE COMMENTS Last administered on 06/15/18at 11:59; Start 06/15/18 at 08:45 Doxycycline Hyclate (Vibra-Tab) 100 mg BID PO Last administered on 06/15/18at 20:16; Start 06/15/18 at 14:00 Lactobacillus Rhamnosus (Culturelle) 1 cap BID PO Last administered on at 20:16; Start 06/15/18 at 21:00 Active Scripts Active Reported Hydrocodone-Apap 10-325 (Hydrocodone Bit/Acetaminophen) 1 Each Tablet 1 Tab PO BID Amlodipine Besylate 10 Mg Tablet 10 Mg PO DAILY08 Vitals/I & O Vital Sign - Last 24 Hours 06/15/18 06/15/18 06/15/18 06/15/18 08:00 08:13 08:49 09:28 Pulse 112 114 Resp 18 B/P (MAP) 171/117 171/117 O2 Delivery Room Air Room Air 06/15/18 06/15/18 06/15/18 06/15/18 11:00 11:59 12:20 13:44 Temp 97.7 97.7 Pulse 108 110 Resp 16 B/P (MAP) 160/121 (134) 160/121 139/89 (106) Pulse Ox 100 97 O2 Delivery Room Air Room Air 06/15/18 06/15/18 06/15/18 06/15/18 14:51 16:30 17:20 18:29 Temp 98.6 98.6 Pulse 101 Resp 16 16 16 B/P (MAP) 152/97 (115) Pulse Ox 97 O2 Delivery Room Air Room Air Room Air Room Air 06/15/18 06/15/18 06/15/18 06/15/18 19:17 19:18 19:51 20:16 Temp 98.3 98.3 Pulse 103 Resp 18 20 B/P (MAP) 146/98 (114) Pulse Ox 98 O2 Delivery Room Air Room Air Room Air Room Air 06/15/18 06/15/18 06/15/18 06/15/18 21:16 21:32 22:02 22:56 Temp 98.1 98.1 Pulse 92 Resp 20 20 20 18 B/P (MAP) 142/86 (104) Pulse Ox 94 O2 Delivery Room Air Room Air Room Air Room Air 06/16/18 06/16/18 03:00 07:04 Temp 98.9 98.9 Pulse 87 Resp 18 B/P (MAP) 104/53 (70) Pulse Ox 94 O2 Delivery Room Air Room Air Intake and Output 06/15/18 06/15/18 06/16/18 15:00 23:00 07:00 Intake Total 700 ml 500 ml Output Total 300 ml 750 ml 225 ml Balance -300 ml -50 ml 275 ml MAGUE RUIZ MD Jun 16, 2018 07:22
[2018-06-16] MEDS ORDERED: CARVEDILOL 3.125 MG TABLET. PO SCH (08:30)
[2018-06-16] MEDS: SENNOSIDES/DOCUSATE 8.6/50MG TABLET. PO SCH (09:00)
[2018-06-16] MEDS: DOXYCYCLINE HYCLATE 100 MG TABLET PO SCH (09:00)
[2018-06-16] MEDS ORDERED: METOPROLOL SUCC 24HR ER 25 MG TAB.ER.24H. PO SCH (09:00)
[2018-06-16 09:18] LABS: CALCIUM 9.8 mg/dL (8.5-10.1); CREATININE 1.1 mg/dL (0.7-1.3); GFR 93.9; MAGNESIUM 1.9 mg/dL (1.8-2.4); POTASSIUM 3.4 mmol/L (3.5-5.1)
--- NOTE | 2018-06-16 09:18 | PDOC ---
BRUCE RANDHAWA SOYFREEZE OPERATOR 06/16/18 0918: CARDIO Progress Notes Date and Time Date of Service 06/16/2018 Time of Evaluation 0900 Vitals Vitals Vital Signs Date Time Temp Pulse Resp B/P (MAP) Pulse Ox O2 Delivery O2 Flow Rate FiO2 06/16/18 07:04 Room Air 06/16/18 07:00 97.8 88 18 163/112 (129) 98 97.8 Weight Weight [ ] Input and Output Intake and Output Intake and Output 06/16/18 07:00 Intake Total 1200 ml Output Total 1275 ml Balance -75 ml Intake Oral 1200 ml Output Urine Total 1275 ml Microbiology Micro Microbiology 06/14/18 Blood Culture - Preliminary, Resulted NO GROWTH AFTER 1 DAY Physical Exam HEENT: Neck Supple W Full Motion Chest: Symmetric LUNGS: Clear to Auscultation Heart: S1S2, RRR (SR) Abdomen: Soft N/T Extremities: No Edema, No Calf Tenderness Neurology: alert, oriented, follow commands Assessment Assessment 1. Malignant HTN: due to substance abuse and noncompliance 2. Polysubstance abuse: +UDS for amphetamines, marijuana and opiates. 3. Acute systolic/diastolic CHF: due to above 4. Mildly elevated troponin: peaked at 0.067, type 2 demand mediated with culprits above. 5. Hypokalemia 6. Tobaccoism 7. Hx of CVA: 2 yrs ago no residual 8. Noncompliance: ran out of FOODSCROOGE 5 days ago. 9. Cardiomyopathy: EF at 30%. Remains CP free. Appears compensated Recommendations 1. Substance abuse cessation. Smoking cessation 2. DC norvasc. Start high dose coreg. Continue losartan. change to PO lasix with K supplement. 3. Continue ASA and intensify statin 4. MPI today. 5. Lifestyle modification. discussed compliance. DASH diet. SANJUANA DRISCOLL MD 06/16/18 1551: CARDIO Progress Notes Assessment Assessment Patient seen and examined. Agree with QUALITY CONTROL DIRECTOR's assessment and plan. Lexiscan nuclear stress test did not show any significant ischemia. Cardiomyopathy better compensated. Agree with starting Coreg and continue losartan Follow-up with our office in 2-4 weeks. BRUCE RANDHAWA APRN Jun 16, 2018 09:18 SANJUANA DRISCOLL MD Jun 16, 2018 15:51
--- NOTE | 2018-06-16 09:50 | RAD ---
Portable chest, 06/16/2018: HISTORY: Congestive heart failure Comparison is made to a study from 06/14/2018. The heart remains mildly enlarged. Perihilar and interstitial opacities have largely cleared compatible with resolution of pulmonary edema. No new pulmonary abnormality is seen. There is no evidence of pleural fluid. IMPRESSION: Pulmonary edema evident on 06/14/2018 has resolved. Electronically signed by: Chito Olivier MD (06/16/2018 9:47 AM) [facility]
[2018-06-16] MEDS ORDERED: CARVEDILOL 12.5 MG TABLET. PO SCH (10:00)
[2018-06-16] MEDS ORDERED: FUROSEMIDE 40 MG TABLET. PO SCH (10:00)
[2018-06-16] MEDS ORDERED: POTASSIUM CHLORIDE 20 MEQ TABLET.ER. PO SCH (10:00)
[2018-06-16 11:00] VITALS: BP 152/107
[2018-06-16] MEDS ORDERED: AMLO10TA6 PO (11:03)
[2018-06-16] MEDS ORDERED: ATOR40TA59 PO (11:03)
[2018-06-16] MEDS ORDERED: DOXY100T PO (11:03)
[2018-06-16] MEDS ORDERED: CARV12.52 PO (11:03)
[2018-06-16] MEDS ORDERED: ASPI-612 PO (11:03)
[2018-06-16] MEDS ORDERED: LOSA100T7 PO (11:03)
[2018-06-16] MEDS ORDERED: FURO40TA4 PO (11:03)
--- NOTE | 2018-06-16 11:08 | PDOC ---
PULMONARY PROGRESS NOTES Subjective feels better no soa wants to go home Vitals Vital Signs Date Time Temp Pulse Resp B/P (MAP) Pulse Ox O2 Delivery O2 Flow Rate FiO2 06/16/18 07:40 Room Air 06/16/18 07:00 97.8 88 18 163/112 (129) 98 97.8 General: Alert, No acute distress Lungs: Clear Cardiovascular: S1 Abdomen: Soft Neuro Exam: Alert Extremities: No Edema Skin: Warm Labs Laboratory Tests Test 06/14/18 20:45 06/14/18 22:00 06/15/18 01:45 06/15/18 04:30 White Blood Count 12.0 x10^3/uL (4.0-11.0) Red Blood Count 4.78 x10^6/uL (4.30-5.70) Hemoglobin 14.4 g/dL (13.0-17.5) Hematocrit 41.2 % (39.0-53.0) Mean Corpuscular Volume 86 fL (79-100) Mean Corpuscular Hemoglobin 30 pg (25-35) Mean Corpuscular Hemoglobin Concent 35 g/dL (31-37) Red Cell Distribution Width 13.6 % (11.5-14.5) Platelet Count 298 x10^3/uL (140-400) Neutrophils (%) (Auto) 63 % (31-73) Lymphocytes (%) (Auto) 27 % (24-48) Monocytes (%) (Auto) 9 % (0-9) Eosinophils (%) (Auto) 1 % (0-3) Basophils (%) (Auto) 1 % (0-3) Neutrophils # (Auto) 7.5 x10^3uL (1.8-7.7) Lymphocytes # (Auto) 3.2 x10^3/uL (1.0-4.8) Monocytes # (Auto) 1.0 x10^3/uL (0.0-1.1) Eosinophils # (Auto) 0.1 x10^3/uL (0.0-0.7) Basophils # (Auto) 0.1 x10^3/uL (0.0-0.2) D-Dimer (Divina) 2.62 ug/mlFEU (0.00-0.50) Sodium Level 141 mmol/L (136-145) Potassium Level 3.1 mmol/L (3.5-5.1) Chloride Level 104 mmol/L (98-107) Carbon Dioxide Level 27 mmol/L (21-32) Anion Gap 10 (6-14) Blood Urea Nitrogen 10 mg/dL (8-26) Creatinine 1.0 mg/dL (0.7-1.3) Estimated GFR (Cockcroft-Gault) 104.8 BUN/Creatinine Ratio 10 (6-20) Glucose Level 94 mg/dL (70-99) Calcium Level 9.1 mg/dL (8.5-10.1) Total Bilirubin 0.6 mg/dL (0.2-1.0) Aspartate Amino Transf (AST/SGOT) 16 U/L (15-37) Alanine Aminotransferase (ALT/SGPT) 22 U/L (16-63) Alkaline Phosphatase 68 U/L (46-116) Troponin I Quantitative 0.067 ng/mL (0.000-0.055) 0.051 ng/mL (0.000-0.055) 0.045 ng/mL (0.000-0.055) LI-Uqx-R-Type Natriuretic Peptide 2104 pg/mL (0-124) Total Protein 7.7 g/dL (6.4-8.2) Albumin 3.2 g/dL (3.4-5.0) Albumin/Globulin Ratio 0.7 (1.0-1.7) Procalcitonin < 0.10 ng/mL (0.00-0.10) Urine Opiates Screen Pos (NEG) Urine Methadone Screen Neg (NEG) Urine Barbiturates Neg (NEG) Urine Phencyclidine Screen Neg (NEG) Urine Amphetamine/Methamphetamine Pos (NEG) Urine Benzodiazepines Screen Neg (NEG) Urine Cocaine Screen Neg (NEG) Urine Cannabinoids Screen Pos (NEG) Urine Ethyl Alcohol Neg (NEG) Magnesium Level 1.8 mg/dL (1.8-2.4) Triglycerides Level 106 mg/dL (0-150) Cholesterol Level 236 mg/dL (0-200) LDL Cholesterol, Calculated 173 mg/dL (0-100) VLDL Cholesterol, Calculated 21 mg/dL (0-40) Non-HDL Cholesterol Calculated 194 mg/dL (0-129) HDL Cholesterol 42 mg/dL (40-60) Cholesterol/HDL Ratio 5.6 Thyroid Stimulating Hormone (TSH) 1.129 uIU/mL (0.358-3.74) Test 06/15/18 04:35 06/15/18 07:50 06/16/18 08:40 White Blood Count 10.0 x10^3/uL (4.0-11.0) Red Blood Count 4.82 x10^6/uL (4.30-5.70) Hemoglobin 14.7 g/dL (13.0-17.5) Hematocrit 41.8 % (39.0-53.0) Mean Corpuscular Volume 87 fL (79-100) Mean Corpuscular Hemoglobin 30 pg (25-35) Mean Corpuscular Hemoglobin Concent 35 g/dL (31-37) Red Cell Distribution Width 13.4 % (11.5-14.5) Platelet Count 290 x10^3/uL (140-400) Neutrophils (%) (Auto) 70 % (31-73) Lymphocytes (%) (Auto) 20 % (24-48) Monocytes (%) (Auto) 9 % (0-9) Eosinophils (%) (Auto) 1 % (0-3) Basophils (%) (Auto) 1 % (0-3) Neutrophils # (Auto) 6.9 x10^3uL (1.8-7.7) Lymphocytes # (Auto) 2.0 x10^3/uL (1.0-4.8) Monocytes # (Auto) 0.8 x10^3/uL (0.0-1.1) Eosinophils # (Auto) 0.1 x10^3/uL (0.0-0.7) Basophils # (Auto) 0.1 x10^3/uL (0.0-0.2) Sodium Level 142 mmol/L (136-145) 143 mmol/L (136-145) Potassium Level 3.4 mmol/L (3.5-5.1) 3.4 mmol/L (3.5-5.1) Chloride Level 103 mmol/L (98-107) 104 mmol/L (98-107) Carbon Dioxide Level 28 mmol/L (21-32) 28 mmol/L (21-32) Anion Gap 11 (6-14) 11 (6-14) Blood Urea Nitrogen 8 mg/dL (8-26) 11 mg/dL (8-26) Creatinine 1.0 mg/dL (0.7-1.3) 1.1 mg/dL (0.7-1.3) Estimated GFR (Cockcroft-Gault) 104.8 93.9 Glucose Level 106 mg/dL (70-99) 107 mg/dL (70-99) Calcium Level 9.2 mg/dL (8.5-10.1) 9.8 mg/dL (8.5-10.1) Glucose (Fingerstick) 101 mg/dL (70-99) Magnesium Level 1.9 mg/dL (1.8-2.4) Laboratory Tests Test 06/16/18 08:40 Sodium Level 143 mmol/L (136-145) Potassium Level 3.4 mmol/L (3.5-5.1) Chloride Level 104 mmol/L (98-107) Carbon Dioxide Level 28 mmol/L (21-32) Anion Gap 11 (6-14) Blood Urea Nitrogen 11 mg/dL (8-26) Creatinine 1.1 mg/dL (0.7-1.3) Estimated GFR (Cockcroft-Gault) 93.9 Glucose Level 107 mg/dL (70-99) Calcium Level 9.8 mg/dL (8.5-10.1) Magnesium Level 1.9 mg/dL (1.8-2.4) Medications Active Scripts Medications Dose Route/Sig Max Daily Dose Days Date Category Dose Instructions Furosemide 40 Mg Tablet 40 Mg PO PRN PRN 30 06/16/18 Rx Weight yourself daily, if you gain more than 3 pounds, take a dose of this and call cardiology Aspirin Ec (Aspirin) 81 Mg Tablet.dr 81 Mg PO DAILYWBKFT 06/16/18 Rx Losartan Potassium 100 Mg Tablet 100 Mg PO DAILY 30 06/16/18 Rx Carvedilol 12.5 Mg Tablet 12.5 Mg PO BIDWMEALS 30 06/16/18 Rx Atorvastatin Calcium 40 Mg Tablet 40 Mg PO QHS 06/16/18 Rx Doxycycline Hyclate 100 Mg Tablet 100 Mg PO BID 7 06/16/18 Rx Amlodipine Besylate 10 Mg Tablet 10 Mg PO DAILY08 06/16/18 Rx Hydrocodone-Apap 10-325 (Hydrocodone Bit/Acetaminophen) 1 Each Tablet 1 Tab PO BID 06/15/18 Reported Impression . 1. Dyspnea with hemoptysis with bilateral diffuse ground glass, alveolar and some nodular infiltrates. The differential diagnosis could be multifactorial; however, in the setting of an EF of 30%, pulmonary edema would be a likely etiology. Other possibilities would include acute lung injury secondary to meth/marijuana versus pneumonia. 2. Ongoing tobacco use and substance abuse. 3. Severe cardiomyopathy with an ejection [id number]%, could be viral, but needs further evaluation by Cardiology. There is [id number] mitral regurgitation as well. Plan . 1. diuresis per cardiology 2. Follow up chest x-ray with complete resolution of CHF 3. dc antibiotics. 4. stress test per cardiology 5. Counseling was provided regarding drug cessation. 6. Discussed with RN./ sun pulmonary butler for dc home will sign off CLIFF WARD MD Jun 16, 2018 11:08
[2018-06-16] MEDS ORDERED: REGADENOSON 0.4 MG/5 ML DISP.SYRIN. IV ONE (11:30)
[2018-06-16] MEDS: LACTOBACILLUS RHAMNOSUS GG 1 CAPSULE. PO SCH (12:39)
[2018-06-16] MEDS: ASPIRIN ENTERIC COATED 81 MG TABLET.DR. PO SCH (12:40)
[2018-06-16] MEDS: LOSARTAN POTASSIUM 50 MG TABLET. PO SCH (12:40)
[2018-06-16] MEDS: HYDROcodone/APAP 5/325MG 1 TAB TABLET PO PRN (12:47)
--- NOTE | 2018-06-16 14:17 | RAD ---
MR#: [id number] Date of Study: 06/16/2018 Ordering Physician: BRUCE RANDHAWA, Referring Physician: BELKIS ORTEGA Tech: RT Joni (R) (N) APPROVED REPORT Test Type: Pharmacological Stress Nurse/Tech: Sandra Gray R.N. Test Indications: cardiomyopathy Cardiac History: Family history, Hypertension, smoker Medications: See Electronic Medical Record Medical History: See Electronic Medical Record Resting ECG: S. tach Resting Heart Rate: 103 bpm Resting Blood Pressure: 144/102mmHg Pretest Chest Pain: Atypical angina Nurse/Tech Notes S1S2, lungs sound clear. States he has pain beneath lt breast that comes and goes, now at 3 Consent: The procedure was explained to the patient in lay terms. Informed consent was witnessed. Reece eout was entered into [employer]. History and Stress Test performed by Sandra Gray RMaryseN. Pharm. Details Pharmacologic stress testing was performed using 0.4mg per 5ml of regadenoson given intravenously ove r 7-10 seconds. Stress Symptoms sweating, stomach cramping, states the pain in lt chest did not change POST EXERCISE Reason for Termination: Infusion complete Target HR: 159 Max HR: 119 bpm Max Blood Pressure: 155/100mmHg Blood Pressure response to exercise: Abnormal blood pressure response during stress. Chest Pain: Yes. did not change during test Arrhythmia: No. ST Change: No. INTERPRETATION Stress EKG Conclusion: Baseline EKG showed sinus rhythm. No ischemic changes at peak stress. No arr hythmias. Imaging Protocol IMAGE PROTOCOL: Rest Tc-99m/stress Tc-99m 1 day Rest: Stress: Viability: Radiopharm.Tc99m QhkgzlckgCm67i Sestamibi Tgyh90nGp 34.6mCi Duration 13min. 13min. Img Date 06/16/2018 06/16/2018 Inj-Img [id number]. 60min. Rest Admin Site:IV - Right AntecubitalAdministrator:RT Jesus (R)(N) Stress Admin Site: IV - Right AntecubitalAdministrator: Sandy Ivy, RT (R)(N) STRESS DATA End Diast. Vol.264.0mlLVEDV index YHT886.0ml End Syst. Vol.208.0mlLVESV index PIQ991.0ml Myocardial Divu198.0gEject. Mtkdsyjm34.0% Stress Scores Regional WT3.00Summed WT48.00 Regional WM3.00Summed WM49.00 LV Perfusion Scintigraphic images showed apical wall thinning without any definite fixed or reversible defects. Wall Motion Severe left ventricle systolic dysfunction with ejection fraction calculated at 21%. LV Perf. Quant 17 Seg. SSS9.00 17 Seg. SRS3.00 17 Seg. SDS7.00 Stress Defect Extent (% LAD)28.80Rest Defect Extent (% LAD)8.80Rev. Defect Extent (% LAD)16.90 Stress Defect Extent (% LCX) 0.00Rest Defect Extent (% LCX)0.00Rev. Defect Extent (% LCX)0.00 Stress Defect Extent (% RCA)12.20Rest Defect Extent (% RCA)0.00Rev. Defect Extent (% RCA)5.60 Stress Defect Extent (% DARIO)14.60Rest Defect Extent (% DARIO)3.70Rev. Defect Extent (% DARIO)7.00 Conclusion 1. Regadenoson cardioisotope stress test showed apical wall thinning without any definite evidence of ischemia or infarct. 2. Severe left ventricle systolic dysfunction with ejection fraction calculated at 21%. 3. Intermediate risk for cardiac events based on diminished left ventricle systolic function. Signed by : Dean Del Cid, Electronically Approved : 06/16/2018 14:16:36
[2018-06-16 15:00] VITALS: BP 154/108
[2018-06-16] MEDS ORDERED: ATORVASTATIN CALCIUM 40 MG TABLET. PO SCH (21:00)
--- NOTE | 2018-06-20 02:22 | PDOC3 ---
Discharge Summary Visit Information Date of Admission: Jun 15, 2018 Date of Discharge: Jun 16, 2018 Admitting Diagnosis: Shortness of breath Final Diagnosis Systolic congestive heart failure Brief Hospital Course Allergies Allergies Coded Allergies Type Severity Reaction Last Updated Verified No Known Drug Allergies 09/28/16 No Brief Hospital Course 32 year old M who presents with redness of breath for the last 4-5 days. 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 He reports he was out of town last week and thought maybe he caught a cold. He denies any fever or chills. He denies any chest pain. He reports he has been out of his Norvasc and hydrocodone for the last 4 days. He reports he has chronic back pain that has been worsening since he is out of his medications. Found in ED with worse c/o chest pain and high BP and SOB. His pain is described as "gas bubbles". He ran out of amlodipine 4 days ago. He feels this came on suddenly when smoking marijuana yesterday with his brother. He was trying to look for PCP so he can renew his meds but at the same time the delay is he does not have insurance. 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 He is positive for amphetamines which he denies and positive for smoking marijuana and tobacco. No ETOH abuse. No leg swelling and no PND. Denies any childhood heart disease. Of note he is originally from [place], [place] and his mother and brother at age 50 both of congestive heart failure. Strong family history of DM and HTN on his paternal side. He was initially diuresed and his BP was better controlled, underwent chemical nuclear stress test with perfusion imaging, showin. Regadenoson cardioisotope stress test showed apical wall thinning without any definite evidence of ischemia or infarct. 2. Severe left ventricle systolic dysfunction with ejection fraction calculated at 21%. 3. Intermediate risk for cardiac events based on diminished left ventricle systolic function. ECHO showed Severe LV dysfunction. EF 30% There is severe global hypokinesis of the left ventricle. Doppler and Color-flow revealed mild to moderate mitral regurgitation. Doppler and Color Flow revealed trace to mild tricuspid regurgitation. There is moderate pulmonary hypertension. The PA pressure was estimated at 56 mmHg. His BP and symptoms improved with diuresis, ARB, and BP control with lasix. He was started on a BB on day 2 and discharged home with ASA, statin, BB, ARB, and strict instructions to follow up in cardiology clinic. He understands the seriousness of his disease as he was looking up heart transplant diagnoses when his results were returned to him. He has vowed to modify his lifestyle. A/P: Acute reduced ejection fraction CHF - with Pulmonary edema - noted on CXR - Consulted cardiology, echo EF 30%, possibly amphetamine vs genetic/familial, started arb, cont norvasc, can start on BB now that his respiratory status improving Malignant HTN - due to substance abuse and compliance difficulties. End organ damage with elevated troponin Polysubstance abuse - +UDS for amphetamines, marijuana and opiates. Mildly elevated troponin - peaked at 0.067, type 2 demand mediated with culprits above. Cardiology consulted Hypokalemia - replaced, ARB will help. monitor Tobaccoism - advised to quit Hx of CVA: 2 yrs ago no residual Compliance difficulties [facility]. Needs insurance and PCP Diet - Cardiac PPX - heparin Full code Inpatient for accelerated HTN with cardiac damage, can d/c with cardiology f/u Discharge Information Condition at Discharge: Improved Follow Up: Weeks (2) Disposition/Orders: D/C to Home Scheduled Amlodipine Besylate (Amlodipine Besylate) 10 Mg Tablet, 10 MG PO DAILY08 for 30 Days, #30 Ref 11 Prescribed by: MAGUE RUIZ MD on 06/16/18 1103 Aspirin (Aspirin Ec) 81 Mg Tablet.dr, 81 MG PO DAILYWBKFT for 30 Days, #30 Ref 11 Prescribed by: MAGUE RUIZ MD on 06/16/18 1103 Atorvastatin Calcium (Atorvastatin Calcium) 40 Mg Tablet, 40 MG PO QHS for 30 Days, #30 Ref 11 Prescribed by: MAGUE RUIZ MD on 06/16/18 1103 Carvedilol (Carvedilol) 12.5 Mg Tablet, 12.5 MG PO BIDWMEALS for 30 Days, #60 Ref 11 Prescribed by: MAGUE RUIZ MD on 06/16/18 1103 Doxycycline Hyclate (Doxycycline Hyclate) 100 Mg Tablet, 100 MG PO BID for 7 Days, #14 Prescribed by: AMGUE RUIZ MD on 06/16/18 1103 Hydrocodone Bit/Acetaminophen (Hydrocodone-Apap 10-325 ) 1 Each Tablet, 1 TAB PO BID, Ref 0 (Reported) Entered as Reported by: Charley Sykes on 06/15/18151 Last Action: HELD on 06/15/18 07 by MAGUE RUIZ MD Losartan Potassium (Losartan Potassium) 100 Mg Tablet, 100 MG PO DAILY for 30 Days, #30 Ref 11 Prescribed by: MAGUE RUIZ MD on 06/16/18 1103 Scheduled PRN Furosemide (Furosemide) 40 Mg Tablet, 40 MG PO PRN PRN for weight gain for 30 Days, #30 Weight yourself daily, if you gain more than 3 pounds, take a dose of this and call cardiology Prescribed by: MAGUE RUIZ MD on 06/16/18 1103 Discontinued Medications Aspirin (Aspirin Ec) 325 Mg Tablet.dr, 1 TAB PO DAILY, #30 Ref 0 Discontinued Reason: per patein Prescribed by: ANITA TERRELL MD on 09/29/16 1544 Last Action: Discontinued on 06/15/18151 by Charley Sykes Lisinopril (Lisinopril) 20 Mg Tablet, 1 TAB PO DAILY, #30 Ref 0 Discontinued Reason: per patien Prescribed by: ANITA TERRELL MD on 09/29/16 1556 Last Action: Discontinued on 06/15/18150 by MAGUE Warner MD Jun 20, 2018 02:22
== END 2018-06-16 17:30 | disposition home or self-care (01) | DRG 291 ==
LOC: ER 18:27 → CVICU 22:50
PROVIDERS: ADMIT Internal Medicine; ATTEND Internal Medicine
DX: I11.0 Hypertensive heart disease with heart failure (principal); J18.9 Pneumonia, unspecified organism; S27.309A Unspecified injury of lung, unspecified, initial encounter; I50.43 Acute on chronic combined systolic (congestive) and diastolic (congestive) heart failure; I42.9 Cardiomyopathy, unspecified; E87.6 Hypokalemia; F12.90 Cannabis use, unspecified, uncomplicated; F17.210 Nicotine dependence, cigarettes, uncomplicated; G89.29 Other chronic pain; I15.8 Other secondary hypertension; I34.0 Nonrheumatic mitral (valve) insufficiency; R79.1 Abnormal coagulation profile; M54.5 Low back pain; F19.10 Other psychoactive substance abuse, uncomplicated; X58.XXXA Exposure to other specified factors, initial encounter; Z82.49 Family history of ischemic heart disease and other diseases of the circulatory system; Z83.3 Family history of diabetes mellitus; Z86.73 Personal history of transient ischemic attack (TIA), and cerebral infarction without residual deficits; Z91.14 Patient's other noncompliance with medication regimen; Z91.19 Patient's noncompliance with other medical treatment and regimen; Z79.899 Other long term (current) drug therapy; Z71.6 Tobacco abuse counseling; Y93.89 Activity, other specified; Y92.89 Other specified places as the place of occurrence of the external cause; Y99.8 Other external cause status
CPT/HCPCS: 36415; 71045; 71046; 71275; 78452; 80048; 80053; 80061; 80307; 82962; 83735; 83880; 84145; 84443; 84484; 85025; 85379; 87040; 93005; 93017; 93306; 94640; 94760; 96365; 96367; 96374; 96375; 96376; A9500; J0456; J0690; J1940; J2785; J3010; J7620; Q9967; 99285-25; G0479